=== PATIENT | male | born 1975 | race Caucasian/White ===

== ENCOUNTER 2024-06-06 10:08 | Inpatient (IN) | payer BC, SELFPAY ==
--- NOTE | ~2024-06-06 | MR_ITS ---
EXAMINATION: MR hand LT wo/w con DATE: 06/07/2024 16:23 INDICATION: Cellulitis at the left hand. Assess for osteomyelitis. TECHNIQUE: Magnetic resonance imaging (MRI) of the left hand was performed without and with 15 mL Mul tihance intravenous contrast. Sequences included axial T1-weighted FSE, axial T2-weighted FS FSE, cor onal T1-weighted FSE, coronal T2-weighted FS FSE, sagittal T1-weighted FSE and sagittal T2-weighted F S FSE. Precontrast axial T1-weighted FS FSE and post contrast axial, sagittal and coronal T1-weighted FS FSE were also obtained. COMPARISON: Left hand radiographs and CT dated 06/06/2024 FINDINGS: Bone alignment is normal. There is a T2 hyperintense intraosseous ganglion cyst with thin sclerotic m argins evident on the prior CT located at the radial side of the head of the third metacarpal. Marrow signal is otherwise normal throughout. No reactive edema, fracture, osteomyelitis or other pathologi c marrow replacing process. No joint effusions. There is soft tissue edema throughout the fourth digi t most prominent dorsal to the head of the fourth proximal phalanx where there is a 12 x 10 x 3 mm pe ripherally enhancing subcutaneous abscess located superficial to the extensor tendons. The flexor and extensor tendons appear normal with no tenosynovitis. The collateral ligament complex at the metacar pophalangeal and interphalangeal joints are normal. IMPRESSION: 1. Cellulitis surrounding a 12 x 10 x 3 mm subcutaneous abscess dorsal to the head of the fourth prox imal phalanx. No osteomyelitis. Reviewed, dictated and finalized at location A. VERY RN IMPRESSION: 1. Cellulitis surrounding a 12 x 10 x 3 mm subcutaneous abscess dorsal to the h ead of the fourth proximal phalanx. No osteomyelitis.
--- NOTE | ~2024-06-06 | CT_ITS ---
Procedure: CT hand LT w con Ordering provider: Peter Hampton MD History: . cellulitis , osteo . Comparison: None. Technique: Thin slice axial CT of the left hand with IV contrast.. Sagittal and coronal reformatted i mages were also obtained and reviewed. Radiation reduction technique utilized.The dose-length product was 481.75 mGy-cm. 100 mL Omnipaque 350 was given IV. Findings: BONES: No evidence of osteomyelitis seen. No fractures. JOINT SPACES: Normal. SOFT TISSUES: Possible fat stranding seen in the dorsal aspect of the fourth finger which may indicat e cellulitis. Clinical correlation advised. IMPRESSION: No evidence of osteomyelitis or fracture. Possible cellulitis in the dorsal aspect of the fourth finger. Clinical correlation advised. Reviewed, dictated and finalized at location A. [employer]
--- NOTE | ~2024-06-06 | XR_ITS ---
EXAMINATION: XR hand LT min 3V DATE: 06/06/2024 12:19 INDICATION: Left hand infection with pain at the second and fourth digits TECHNIQUE: Posteroanterior, oblique and lateral views of the left hand were obtained. COMPARISON: None. FINDINGS: Alignment is normal. No fracture. Minimal to mild polyarticular osteoarthritis at the distal radiouln ar joint the radial aspect of the carpus and a few predominant distal interphalangeal joints. No faraz ical erosions or periosteal reaction. Soft tissue swelling about the second and fourth digits. IMPRESSION: 1. 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 No acute osseous abnormal ity. Reviewed, dictated and finalized at location B. NS SERVICE CONDUCTOR IMPRESSION: 1. 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 No acute osseous abnormality.
[2024-06-06 10:38] VITALS: BP 170/99; PULSE 101; RESP 20; TEMP 37.2; O2SAT 100
--- NOTE | 2024-06-06 12:07 | ED_ITS ---
HPI - General Adult General Chief complaint: Extremity Injury, Upper <Kaushal Phillips PA-C - Last Filed: 06/06/24 12:12> Stated complaint: Poss Staph infection left hand <Kaushal Phillips PA-C - Last Filed: 06/06/24 12:12> Time Seen by Provider: 06/06/24 15:19 <Kaushal Phillips PA-C - Last Filed: 06/06/24 12:12> Focused HPI: this is a 49-year-old male who presents to the ED for chief complaint of left hand redness and swelling ongoing for the last week and half. Reports that he is a type 2 diabetic and has not taken his medications in years. Patient works as a materials scientist in the local area and wants to make sure that he does not get septic. Reports 2 areas to the left hand that he connect with his car door that have subsequently developed to probable infections. They do drain pus. Reports subjective fevers and chills. Denies nausea, vomiting, syncope. GENERAL: Well-appearing, well-nourished, and in no acute distress. HEAD: Normocephalic, atraumatic. CHEST: Clear to auscultation. No respiratory distress. HEART: Regular rate and rhythm. NEURO: Alert and oriented x3. Patient screened in triage and initial orders placed. Additional care and disposition to be based upon diagnostic testing and treatment. <Kaushal Phillips PA-C - Last Filed: 06/06/24 12:12> Source: patient <Kaushal Phillips PA-C - Last Filed: 06/06/24 12:12> Mode of arrival: ambulatory <Kaushal Phillips PA-C - Last Filed: 06/06/24 12:12> Limitations: no limitations <Kaushal Phillips PA-C - Last Filed: 06/06/24 12:12> History of Present Illness HPI narrative: 49-year-old with a history of diabetes here with a complaint of pain, swelling and redness to his left hand. Patient states that he accidentally hit his hand against a car door 2 weeks ago had of open wound. The for the past few days and now the hand is getting red and occasionally draining pus. He is not on any antibiotics. Patient states that he has not been taking any of his diabetic medication for last several years. He also states that he has had fever and chills over the last few days, he works as a materials scientist. reports that he has few similar lesions on his back,pt states he was scratching his back might got infected. has sore throat since last night. <Peter Hampton MD - Last Filed: 06/06/24 19:00> Onset (ago): day(s) (4) <Peter Hampton MD - Last Filed: 06/06/24 19:00> Location: upper extremity (left) <Peter Hampton MD - Last Filed: 06/06/24 19:00> Related Data Allergies/adverse reactions: Allergies Allergy/AdvReac Type Severity Reaction Status Date / Time codeine AdvReac Unknown Verified 06/06/24 10:43 <Kaushal Phillips PA-C - Last Filed: 06/06/24 12:12> Review of Systems 2 Review of Systems: All systems reviewed & are unremarkable except as noted in HPI and below <Peter Hampton MD - Last Filed: 06/06/24 19:00> Constitutional: Constitutional: Reports no additional constitutional complaints <Peter Hampton MD - Last Filed: 06/06/24 19:00> Eyes: Eyes: Reports no additional eye complaints <Peter Hampton MD - Last Filed: 06/06/24 19:00> ENT: Reports as per HPI <Peter Hampton MD - Last Filed: 06/06/24 19:00> Cardiovascular: Cardiovascular: Reports no additional cardiovascular complaints <Peter Hampton MD - Last Filed: 06/06/24 19:00> Respiratory: Respiratory: Reports no additional respiratory complaints < Peter Hampton MD - Last Filed: 06/06/24 19:00> Gastrointestinal: Gastrointestinal: Reports no additional gastrointestinal complaints <Peter Hampton MD - Last Filed: 06/06/24 19:00> Musculoskeletal: Musculoskeletal: Reports as per HPI <Peter Hampton MD - Last Filed: 06/06/24 19:00> Integumentary/Breasts: Skin/Breast: Reports as per HPI <Peter Hampton MD - Last Filed: 06/06/24 19:00> Neurologic: Reports system reviewed and no additional complaints, except as documented <Peter Hampton MD - Last Filed: 06/06/24 19:00> Exam 2 Narrative: GENERAL: Well-appearing, well-nourished, and in no acute distress. HEAD: Normocephalic, atraumatic. EYES: PERRLA and EOMI. ENT: Nares clear, no rhinorrhea or epistaxis. Mucous membranes moist mildly erythematous oropharynx, no exudate NECK: Supple. CHEST: Clear to auscultation. No respiratory distress. HEART: Regular rate and rhythm. No murmur heard. Normal peripheral pulses. ABDOMEN: Soft, nontender, nondistended, normal active bowel sounds. EXTREMITIES: Normal range of motion. No edema. left hand i open wound on the 3 rd and 5 th finger with thick eschar with no obvious drainage. SKIN: Warm, dry, no rash. NEURO: No focal deficits. Alert and oriented x3. PSYCH: Normal mood and affect. <Peter Hampton MD - Last Filed: 06/06/24 19:00> Course Course Emergency Course: patient remained afebrile here in the ER his hand is not as and has open ulcers. I did obtain blood cultures was started on IV antibiotics vancomycin and cefazolin. he agreed with admission. Discussed with hospitalist <Peter Hampton MD - Last Filed: 06/06/24 19:00> Vital Signs Vital signs: Vital Signs Temperature 37.2 C 06/06/24 10:38 Pulse Rate 101 H 06/06/24 10:38 Respiratory Rate 20 06/06/24 10:38 Blood Pressure 170/99 H 06/06/24 10:38 Pulse Oximetry 100 06/06/24 10:38 Oxygen Delivery Room Air 06/06/24 10:38 Temperature 37.2 C 06/06/24 10:38 Pulse Rate 101 H 06/06/24 10:38 Respiratory Rate 20 06/06/24 10:38 Blood Pressure 170/99 H 06/06/24 10:38 Pulse Oximetry 100 06/06/24 10:38 Oxygen Delivery Room Air 06/06/24 10:38 <Kaushal Phillips PA-C - Last Filed: 06/06/24 12:12> Vital Signs Temperature 37.2 C 06/06/24 10:38 Pulse Rate 101 H 06/06/24 10:38 Respiratory Rate 20 06/06/24 10:38 Blood Pressure 170/99 H 06/06/24 10:38 Pulse Oximetry 100 06/06/24 10:38 Oxygen Delivery Room Air 06/06/24 10:38 Temperature 37.2 C 06/06/24 10:38 Pulse Rate 101 H 06/06/24 10:38 Respiratory Rate 20 06/06/24 10:38 Blood Pressure 170/99 H 06/06/24 10:38 Pulse Oximetry 100 06/06/24 10:38 Oxygen Delivery Room Air 06/06/24 10:38 <Peter Hampton MD - Last Filed: 06/06/24 19:00> Medical Decision Making Differential Diagnosis Differential Diagnosis: cellulitis, osteomyelitis <Peter Hampton MD - Last Filed: 06/06/24 19:00> Medical Records Medical records reviewed: Yes I reviewed the external patient's medical records. <Peter Hampton MD - Last Filed: 06/06/24 19:00> Vital Signs Vital Signs: Vital Signs Temperature 37.2 C 06/06/24 10:38 Pulse Rate 101 H 06/06/24 10:38 Respiratory Rate 20 06/06/24 10:38 Blood Pressure 170/99 H 06/06/24 10:38 Pulse Oximetry 100 06/06/24 10:38 Oxygen Delivery Room Air 06/06/24 10:38 Temperature 37.2 C 06/06/24 10:38 Pulse Rate 101 H 06/06/24 10:38 Respiratory Rate 20 06/06/24 10:38 Blood Pressure 170/99 H 06/06/24 10:38 Pulse Oximetry 100 06/06/24 10:38 Oxygen Delivery Room Air 06/06/24 10:38 <Kaushal Phillips PA-C - Last Filed: 06/06/24 12:12> Vital Signs Temperature 37.2 C 06/06/24 10:38 Pulse Rate 101 H 06/06/24 10:38 Respiratory Rate 20 06/06/24 10:38 Blood Pressure 170/99 H 06/06/24 10:38 Pulse Oximetry 100 06/06/24 10:38 Oxygen Delivery Room Air 06/06/24 10:38 Temperature 37.2 C 06/06/24 10:38 Pulse Rate 101 H 06/06/24 10:38 Respiratory Rate 20 06/06/24 10:38 Blood Pressure 170/99 H 06/06/24 10:38 Pulse Oximetry 100 06/06/24 10:38 Oxygen Delivery Room Air 06/06/24 10:38 <Peter Hampton MD - Last Filed: 06/06/24 19:00> Lab Data Lab results reviewed: Yes I reviewed the patient's lab results. <Peter Hampton MD - Last Filed: 06/06/24 19:00> Result diagrams: 06/06/24 15:21 06/06/24 15:21 <Kaushal Phillips PA-C - Last Filed: 06/06/24 12:12> Labs: Lab Results 06/06/24 06/06/24 Range/Units 15:21 16:23 WBC 11.2 H (4.5-10.0) K/mm3 RBC 5.39 (4.6-6.20) M/mm3 Hgb 15.8 (14.0-18.0) g/dL Hct 44.4 (42.0-52.0) % MCV 82.4 (80-100) fl MCH 29.3 (26-34) pg MCHC 35.6 (32-36) g/dl RDW 12.4 (11.5-14.5) % Plt Count 173 (150-375) k/mm3 MPV 10.8 H (7.4-10.4) fl Immature Gran % (Auto) 0.5 (0-0.5) % Neut % (Auto) 82.3 H (45.5-73.1) % Lymph % (Auto) 8.1 L (18.3-44.2) % Leake % (Auto) 8.1 (2.6-8.5) % Eos % (Auto) 0.6 (0-4.4) % Baso % (Auto) 0.4 (0.2-1.2) % Lymph # (Auto) 0.91 (0.9-3.2) K/mm3 Leake # (Auto) 0.9 H (0.1-0.6) K/mm3 Eos # (Auto) 0.1 (0-0.3) K/mm3 Baso # (Auto) 0.1 (0.0-0.1) K/mm3 Abs Immat Gran (auto) 0.06 H (0.00-0.031) K/mm3 Absolute Neuts (auto) 9.2 H (1.3-6.7) K/mm3 Absolute Nucleated RBC 0.000 (0.0-0.012) K/mm3 Nucleated RBC % 0.0 (0.0-0.2) % Sodium 128 L (137-145) mmol/L Potassium 4.4 (3.4-5.0) mmol/L Chloride 98 (98-107) mmol/L Carbon Dioxide 23 (22-30) mmol/L Anion Gap 7 (4-12) mmol/L BUN 12 (9-20) mg/dL Creatinine 0.80 (0.7-1.3) mg/dL Estim Creat Clear Calc 105 ml/min Estimated GFR > 60 (59 - ) Glucose 275 H (65-110) mg/dL Lactic Acid 1.1 (0.7-2.0) mmol/L Calcium 8.7 (8.4-10.2) mg/dL Total Bilirubin 1.0 (0.2-1.3) mg/dL AST 24 (17-59) U/L ALT 30 (6-50) U/L Alkaline Phosphatase 145 H (38-126) U/L C-Reactive Protein 8.1 H (<1.0) mg/dL Total Protein 8.0 (6.3-8.2) g/dL Albumin 4.0 (3.5-5.1) g/dL Urine Color Yellow (Yellow) Urine Appearance Clear (Clear) Urine pH 5.5 (5.0-9.0) Ur Specific [place] 1.039 H (1.001-1.035) Urine Protein 1+ H (Negative) mg/dL Urine Glucose (UA) 3+ H (Negative) mg/dL Urine Ketones 3+ H (Negative) mg/dL Ur Blood (Man) Trace (Negative) Urine Nitrate Negative (Negative) Urine Bilirubin Negative (Negative) Urine Urobilinogen 1.0 (<2.0) mg/dL Leukocyte Esterase Rfl Negative (Negative) LUIS ENRIQUE/UL Urine RBC 0-2 (0-2) /hpf Urine WBC 0-5 (0-3) /hpf Ur Squamous Epith Cells None seen (Few) /hpf Urine Bacteria None seen /hpf Urine Casts 0-2 Influenza A (RT-PCR) Pending Influenza B (RT-PCR) Pending RSV (RT-PCR) Pending SARS-CoV-2 RNA (RT-PCR) Pending Group A Strep (PCR) Pending <Kaushal Phillips PA-C - Last Filed: 06/06/24 12:12> Lab Results 06/06/24 06/06/24 Range/Units 15:21 16:23 WBC 11.2 H (4.5-10.0) K/mm3 RBC 5.39 (4.6-6.20) M/mm3 Hgb 15.8 (14.0-18.0) g/dL Hct 44.4 (42.0-52.0) % MCV 82.4 (80-100) fl MCH 29.3 (26-34) pg MCHC 35.6 (32-36) g/dl RDW 12.4 (11.5-14.5) % Plt Count 173 (150-375) k/mm3 MPV 10.8 H (7.4-10.4) fl Immature Gran % (Auto) 0.5 (0-0.5) % Neut % (Auto) 82.3 H (45.5-73.1) % Lymph % (Auto) 8.1 L (18.3-44.2) % Leake % (Auto) 8.1 (2.6-8.5) % Eos % (Auto) 0.6 (0-4.4) % Baso % (Auto) 0.4 (0.2-1.2) % Lymph # (Auto) 0.91 (0.9-3.2) K/mm3 Leake # (Auto) 0.9 H (0.1-0.6) K/mm3 Eos # (Auto) 0.1 (0-0.3) K/mm3 Baso # (Auto) 0.1 (0.0-0.1) K/mm3 Abs Immat Gran (auto) 0.06 H (0.00-0.031) K/mm3 Absolute Neuts (auto) 9.2 H (1.3-6.7) K/mm3 Absolute Nucleated RBC 0.000 (0.0-0.012) K/mm3 Nucleated RBC % 0.0 (0.0-0.2) % Sodium 128 L (137-145) mmol/L Potassium 4.4 (3.4-5.0) mmol/L Chloride 98 (98-107) mmol/L Carbon Dioxide 23 (22-30) mmol/L Anion Gap 7 (4-12) mmol/L BUN 12 (9-20) mg/dL Creatinine 0.80 (0.7-1.3) mg/dL Estim Creat Clear Calc 105 ml/min Estimated GFR > 60 (59 - ) Glucose 275 H (65-110) mg/dL Lactic Acid 1.1 (0.7-2.0) mmol/L Calcium 8.7 (8.4-10.2) mg/dL Total Bilirubin 1.0 (0.2-1.3) mg/dL AST 24 (17-59) U/L ALT 30 (6-50) U/L Alkaline Phosphatase 145 H (38-126) U/L C-Reactive Protein 8.1 H (<1.0) mg/dL Total Protein 8.0 (6.3-8.2) g/dL Albumin 4.0 (3.5-5.1) g/dL Urine Color Yellow (Yellow) Urine Appearance Clear (Clear) Urine pH 5.5 (5.0-9.0) Ur Specific [place] 1.039 H (1.001-1.035) Urine Protein 1+ H (Negative) mg/dL Urine Glucose (UA) 3+ H (Negative) mg/dL Urine Ketones 3+ H (Negative) mg/dL Ur Blood (Man) Trace (Negative) Urine Nitrate Negative (Negative) Urine Bilirubin Negative (Negative) Urine Urobilinogen 1.0 (<2.0) mg/dL Leukocyte Esterase Rfl Negative (Negative) LUIS ENRIQUE/UL Urine RBC 0-2 (0-2) /hpf Urine WBC 0-5 (0-3) /hpf Ur Squamous Epith Cells None seen (Few) /hpf Urine Bacteria None seen /hpf Urine Casts 0-2 Influenza A (RT-PCR) Pending Influenza B (RT-PCR) Pending RSV (RT-PCR) Pending SARS-CoV-2 RNA (RT-PCR) Pending Group A Strep (PCR) Pending <Peter Hampton MD - Last Filed: 06/06/24 19:00> Imaging Data Radiologist's impression: ITS Impressions Hand X-Ray 06/06/24 12:31 IMPRESSION: 1. 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 No acute osseous abnormality. <Peter Hampton MD - Last Filed: 06/06/24 19:00> Discharge Plan Discharge Clinical Impression: Cellulitis of hand, Non compliance w medication regimen, Strep throat <Kaushal Phillips PA-C - Last Filed: 06/06/24 12:12> Patient Disposition: Still a Patient <Kaushal Phillips PA-C - Last Filed: 06/06/24 12:12> Condition: Stable <Kaushal Phillips PA-C - Last Filed: 06/06/24 12:12> Patient Language: Italian <Kaushal Phillips PA-C - Last Filed: 06/06/24 12:12> Follow-up/Referrals: Ana M Cavazos MD [Primary Care Provider] - <Kaushal Phillips PA-C - Last Filed: 06/06/24 12:12> Time of Disposition: 19:00 <Kaushal Phillips PA-C - Last Filed: 06/06/24 12:12> 19:00 <Peter Hampton MD - Last Filed: 06/06/24 19:00>
[2024-06-06 15:27] LABS: Basophils Absolute Auto 0.1 K/mm3 (0.0-0.1); Basophils Percent Auto 0.4 % (0.2-1.2); Eosinophils Absolute Auto 0.1 K/mm3 (0-0.3); Eosinophils Percent Auto 0.6 % (0-4.4); Hematocrit 44.4 % (42.0-52.0); Hemoglobin 15.8 g/dL (14.0-18.0); Immature Granulocyte Absolute 0.06 K/mm3 (0.00-0.031); Immature Granulocyte Percent A 0.5 % (0-0.5); Lymphocytes Absolute Auto 0.91 K/mm3 (0.9-3.2); Lymphocytes Percent Auto 8.1 % (18.3-44.2); Mean Corpuscular HGB Conc 35.6 g/dl (32-36); Mean Corpuscular Hemoglobin 29.3 pg (26-34); Mean Corpuscular Volume 82.4 fl (80-100); Mean Platelet Volume 10.8 fl (7.4-10.4); Monocytes Absolute Auto 0.9 K/mm3 (0.1-0.6); Monocytes Percent Auto 8.1 % (2.6-8.5); Neutrophils Absolute Auto 9.2 K/mm3 (1.3-6.7); Neutrophils Percent Auto 82.3 % (45.5-73.1); Platelet Count Result 173 k/mm3 (150-375); Red Blood Count 5.39 M/mm3 (4.6-6.20); Red Cell Distribution Width 12.4 % (11.5-14.5); White Blood Count 11.2 K/mm3 (4.5-10.0)
[2024-06-06 15:30] VITALS: BP 166/91; PULSE 98; RESP 19; O2SAT 99
[2024-06-06 15:34] LABS: Add Urine Microscopic? YES; Appearance Urine Clear (Clear); Bacteria Urine None Seen /hpf; Bilirubin Urine Negative (Negative); Blood Urine Trace (Negative); Color Urine Yellow (Yellow); Glucose Urine UA 3+ mg/dL (Negative); Ketones Urine 3+ mg/dL (Negative); Leukocyte Esterase Ur Negative LEU/UL (Negative); Nitrate Urine Negative (Negative); Non Pathogenic Casts 0-2; Protein Urine 1+ mg/dL (Negative); RBC Urine 0-2 /hpf (0-2); Specific Grav Ur 1.039 (1.001-1.035); Squamous Epithelial Cell Urine None Seen /hpf (Few); WBC Urine 0-5 /hpf (0-3); pH Urine 5.5 (5.0-9.0)
[2024-06-06 15:37] LABS: Lactic Acid Reflex 1.1 mmol/L (0.7-2.0)
[2024-06-06 15:39] LABS: Alanine Aminotransferase 30 U/L (6-50); Alkaline Phosphatase 145 U/L (38-126); Anion Gap 7 mmol/L (4-12); Aspartate Amino Transferase 24 U/L (17-59); Blood Urea Nitrogen 12 mg/dL (9-20); CRP 8.1 mg/dL (<1.0); Calcium 8.7 mg/dL (8.4-10.2); Carbon Dioxide 23 mmol/L (22-30); Chloride 98 mmol/L (98-107); Estimated CRCL calculation 105 ml/min; Estimated Glomerular Filt Rate > 60; Glucose 275 mg/dL (65-110); Potassium 4.4 mmol/L (3.4-5.0); Sodium 128 mmol/L (137-145)
[2024-06-06 16:59] LABS: Strep Group A RT-PCR DETECTED (Negative)
[2024-06-06 17:14] LABS: Influenza A QL RT-PCR Negative (Negative); Influenza B QL RT-PCR Negative (Negative); RSV RNA, RT-PCR Negative (Negative); SARS-CoV-2 RNA PCR Negative (Negative)
[2024-06-06 17:25] VITALS: BP 176/90; PULSE 89; RESP 16; O2SAT 100
[2024-06-06] MEDS: VANCOMYCIN 1,500 MG/NS 500 ML 1,500 MG/500 ML BAG 250 MG IVPB (17:32)
[2024-06-06] MEDS: SODIUM CHLORIDE 0.9% IV 1,000 ML 999 ML IV CONT (18:33)
[2024-06-06] MEDS: INSULIN ASPART (*BKC) 100 UNITS/ML 8 UNITS SUB-Q (18:33)
[2024-06-06 19:10] VITALS: BP 153/91; PULSE 97; RESP 22; O2SAT 100
[2024-06-06 21:00] VITALS: BP 159/84; PULSE 89; RESP 20; O2SAT 99
--- NOTE | 2024-06-06 21:10 | PM.IMHP ---
H&P: HPI History of Present Illness Date/Time: 06/06/24 21:10 Chief Complaint: hand cellulitis left hand redness and swelling Narrative: 49-year-old male with past medical history of diabetes mellitus, not on any medications at home presented with left hand swelling and redness. He was closing the door of his jeep 1/2 weeks ago when he thinks he caught his hand. It started with a small pimple like swelling along with redness which has increased including the knuckle area. Does have chills at home. He does have similar looking lesions on the back which she has been scratching. Does not take any medications at home. Does not take any diabetic medications at home. Does smoke and vape. Denies taking any antibiotics recently for those redness and swelling. Complains of constipation, last bowel movement 3 days ago, usually he goes without having a bowel movement for 1-2 weeks. Also complains of sore throat Review of Systems Review of Systems: All systems reviewed & are unremarkable except as noted in HPI and below Meds Home Medications and Allergies Allergies Allergy/AdvReac Type Severity Reaction Status Date / Time codeine AdvReac Unknown Verified 06/06/24 10:43 Vital Signs Vital Signs - 24 hr 06/06/24 10:38 Temperature 99.0 F Pulse Rate 101 H Respiratory Rate 20 Blood Pressure 170/99 H Pulse Oximetry 100 Oxygen Delivery Room Air Exam Const: General: comfortable HENMT: Face/Nose/Sinus: Normal nares present Mouth: Yes moist mucous membranes Eyes: Sclera: sclerae normal Neck: Neck: supple Resp: Effort & Inspection: normal respiratory effort Auscultation: clear to auscultation bilaterally Cardio: Rate: regular rate Rhythm: regular rhythm GI: GI Palp: Yes Soft to palpation Auscultation: normal bowel sounds Skin: Wounds: wounds noted Other: Noted skin break with surrounding mild erythema on upper back, noted redness and swelling of of middle finger along the interphalangeal joint and knuckle area Neuro: Speech: normal speech Motor exam (neuro): 5/5 motor strength present throughout Extrem: General: normal to inspection Psych: Mental Status: mental status grossly normal H&P: Results Labs Labs: Short CBC 06/06/24 Range/Units 15:21 WBC 11.2 H (4.5-10.0) K/mm3 Hgb 15.8 (14.0-18.0) g/dL Hct 44.4 (42.0-52.0) % Plt Count 173 (150-375) k/mm3 BMP 06/06/24 15:21 Sodium 128 L Potassium 4.4 Chloride 98 Carbon Dioxide 23 BUN 12 Creatinine 0.80 Glucose 275 H Calcium 8.7 Liver Function 06/06/24 Range/Units 15:21 Total Bilirubin 1.0 (0.2-1.3) mg/dL AST 24 (17-59) U/L ALT 30 (6-50) U/L Alkaline Phosphatase 145 H (38-126) U/L Albumin 4.0 (3.5-5.1) g/dL Urine 06/06/24 Range/Units 15:21 Urine Color Yellow (Yellow) Urine Appearance Clear (Clear) Urine pH 5.5 (5.0-9.0) Ur Specific [place] 1.039 H (1.001-1.035) Urine Protein 1+ H (Negative) mg/dL Urine Glucose (UA) 3+ H (Negative) mg/dL Assessment and Plan Assessment and plan (1) Strep throat: Code(s): J02.0 - Streptococcal pharyngitis Status: Acute (2) Non compliance w medication regimen: Code(s): Z91.148 - Patient's other noncompliance with medication regimen for other reason Status: Acute (3) Cellulitis of hand: Code(s): L03.119 - Cellulitis of unspecified part of limb Status: Acute (4) Diabetes mellitus: Code(s): E11.9 - Type 2 diabetes mellitus without complications Status: Acute (5) Hyponatremia: Code(s): E87.1 - Hypo-osmolality and hyponatremia Status: Acute (6) Hypertension: Code(s): I10 - Essential (primary) hypertension Status: Acute Plan 49-year-old male with no known past medical history of diabetes mellitus, not on any medications who presented with left hand cellulitis after having a traumatic injury from a car door. 1. Left hand cellulitis: Admit to General Medicine CT had been negative for any abscess/fracture/osteomyelitis Obtain blood culture Has been started on vancomycin and cefepime will continue for now Pain control Wound care consult Monitor leukocytosis 2. Diabetes mellitus: Obtain hemoglobin A1c with next set of labs Blood glucose checked t.i.d. a.c. HS Will start on basal bolus regimen Adjust insulin dose as needed Nutrition consult in the morning 3. Undiagnosed hypertension: Will start on low-dose lisinopril Add p.r.n. IV hydralazine 4. Hyponatremia: Likely secondary to osmotic diuresis Continue with IV fluids Recheck BMP in a.m. 5. Group a strep pharyngitis: Already on antibiotics as mentioned above Supportive care with lozenges, phenol spray p.r.n. 6. DVT prophylaxis: Heparin subQ 7. Code status: Full 8. Disposition: Admit to General [facility] Quality VTE Prophylaxis VTE prophylaxis: pharmacologic ordered Hospitalist [facility] Advance Care Plan I have confirmed that the patient's Advanced Care Plan is present, code status is documented, or surrogate decision maker is listed in patient medical record.: Yes Medication Reconciliation I have utilized all available resources to obtain, update and review the patients current medications (includes all prescriptions, OTC, herbals, cannabis, and nutritional supplements).: Yes
[2024-06-06] MEDS: ceFAZolin 1 GM/NS 50 ML 1 GM/50 ML BAG IVPB (21:17)
[2024-06-06 21:23] LABS: Glucose Point of Care 266 mg/dl (65-105)
[2024-06-06] MEDS: oxyCODONE/ACETAMINOPHEN (*CRX) 5-325 MG TABLET 1 TABLET PO (21:36)
--- NOTE | 2024-06-06 22:06 | ADMGEN ---
This patient, Panchito Jones, was admitted to 2 Medical Room 248-01. Patient/family oriented to hospital policies and general routines including ID bracelet, bed and alarms, visiting hours, pain management, procedures, bathroom and other care routines, personal items, smoking policy, room service/diet, and visiting hours. Information on how to activate the Rapid Response Team has been discussed. Patient/Family are encouraged to report perceived risks to care and to ask questions if they do not understand what they are told or what they should do. Report received from JAYDE Jauregui in ED.
[2024-06-06 22:12] VITALS: BMI 30.7
[2024-06-06] MEDS: INSULIN GLARGINE (*BKC) 100 UNITS/ML 14 UNITS SUB-Q (22:21)
[2024-06-06 22:22] LABS: Glucose Point of Care 251 mg/dl (65-105)
[2024-06-06] MEDS: SODIUM CHLORIDE 0.9% IV 1,000 ML 125 ML IV CONT (22:22)
[2024-06-06] MEDS: HEPARIN SODIUM 5,000 UNITS/ML VIAL 5000 UNITS SUB-Q (22:22)
[2024-06-06 22:27] VITALS: BP 134/78; PULSE 98; RESP 16; TEMP 36.5; O2SAT 96
[2024-06-06] MEDS: NICOTINE (*PBKC) 21 MG PATCH 1 PATCH TRANSDERM (23:26)
[2024-06-07] MEDS: ceFAZolin 1 GM/NS 50 ML 1 GM/50 ML BAG IVPB ×3 (04:48→21:53)
[2024-06-07] MEDS: BENZOCAINE/MENTHOL (*BKC) 18 EA LOZENGE 1 LOZENGE PO (04:52)
[2024-06-07 05:02] LABS: Hemoglobin A1C 12.3 % (<5.7)
[2024-06-07 05:17] LABS: Basophils Absolute Auto 0.1 K/mm3 (0.0-0.1); Basophils Percent Auto 0.6 % (0.2-1.2); Eosinophils Absolute Auto 0.1 K/mm3 (0-0.3); Eosinophils Percent Auto 1.7 % (0-4.4); Hematocrit 41.8 % (42.0-52.0); Hemoglobin 14.5 g/dL (14.0-18.0); Immature Granulocyte Absolute 0.06 K/mm3 (0.00-0.031); Immature Granulocyte Percent A 0.7 % (0-0.5); Lymphocytes Absolute Auto 1.21 K/mm3 (0.9-3.2); Lymphocytes Percent Auto 14.4 % (18.3-44.2); Mean Corpuscular HGB Conc 34.7 g/dl (32-36); Mean Corpuscular Hemoglobin 29.1 pg (26-34); Mean Corpuscular Volume 83.8 fl (80-100); Mean Platelet Volume 11.2 fl (7.4-10.4); Monocytes Absolute Auto 0.9 K/mm3 (0.1-0.6); Monocytes Percent Auto 10.3 % (2.6-8.5); Neutrophils Absolute Auto 6.1 K/mm3 (1.3-6.7); Neutrophils Percent Auto 72.3 % (45.5-73.1); Platelet Count Result 159 k/mm3 (150-375); Red Blood Count 4.99 M/mm3 (4.6-6.20); Red Cell Distribution Width 12.4 % (11.5-14.5); White Blood Count 8.4 K/mm3 (4.5-10.0)
[2024-06-07] MEDS: SODIUM CHLORIDE 0.9% IV 1,000 ML 125 ML IV CONT (05:18)
[2024-06-07] MEDS: VANCOMYCIN 1,500 MG/NS 500 ML 1,500 MG/500 ML BAG 250 MG IVPB ×2 (05:18→17:02)
[2024-06-07] MEDS: HEPARIN SODIUM 5,000 UNITS/ML VIAL 5000 UNITS SUB-Q ×3 (05:19→20:55)
[2024-06-07 05:29] LABS: Potassium 4.3 mmol/L (3.4-5.0)
[2024-06-07 05:30] LABS: Anion Gap 3 mmol/L (4-12); Blood Urea Nitrogen 12 mg/dL (9-20); Calcium 8.2 mg/dL (8.4-10.2); Carbon Dioxide 27 mmol/L (22-30); Chloride 103 mmol/L (98-107); Estimated CRCL calculation 104 ml/min; Estimated Glomerular Filt Rate > 60; Glucose 252 mg/dL (65-110); Sodium 133 mmol/L (137-145)
[2024-06-07 06:09] VITALS: BP 162/78; PULSE 88; RESP 16; TEMP 36.3; O2SAT 98
[2024-06-07 07:27] VITALS: O2SAT 94
[2024-06-07 08:14] LABS: Glucose Point of Care 240 mg/dl (65-105)
[2024-06-07] MEDS: INSULIN ASPART (*BKC) 100 UNITS/ML SUB-Q ×2 (08:35→17:04)
[2024-06-07] MEDS: INSULIN ASPART (*BKC) 100 UNITS/ML 6 UNITS SUB-Q ×3 (08:36→17:04)
[2024-06-07] MEDS: lisinopriL 5 MG TABLET PO (08:40)
[2024-06-07] MEDS: polyethylene glycoL 3350 17 GM POWD.PACK PO (08:40)
[2024-06-07] MEDS: NICOTINE (*PBKC) 21 MG PATCH 1 PATCH TRANSDERM (08:40)
[2024-06-07 12:00] LABS: Glucose Point of Care 181 mg/dl (65-105)
[2024-06-07] MEDS: ACETAMINOPHEN 325 MG TABLET 650 MG PO (12:31)
--- NOTE | 2024-06-07 14:04 | PM.IMPN ---
Progress Note: A&P Assessment and Plan (1) Strep throat: Code(s): J02.0 - Streptococcal pharyngitis Status: Acute (2) Non compliance w medication regimen: Code(s): Z91.148 - Patient's other noncompliance with medication regimen for other reason Status: Acute (3) Cellulitis of hand: Code(s): L03.119 - Cellulitis of unspecified part of limb Status: Acute (4) Diabetes mellitus: Code(s): E11.9 - Type 2 diabetes mellitus without complications Status: Acute (5) Hyponatremia: Code(s): E87.1 - Hypo-osmolality and hyponatremia Status: Acute (6) Hypertension: Code(s): I10 - Essential (primary) hypertension Status: Acute Plan 49-year-old male with no known past medical history of diabetes mellitus, not on any medications who presented with left hand cellulitis after having a traumatic injury from a car door. 1. Left hand cellulitis: CT had been negative for any abscess/fracture/osteomyelitis MRI hand ordered Obtain blood culture Continue vancomycin and Levofloxacin Pain control Wound care consult Monitor leukocytosis Gen surgery consulted for possible debridement 2. Diabetes mellitus: A1c pending SSI with accucheks 3. Undiagnosed hypertension: Started on Lisinopril and Add p.r.n. IV hydralazine 4. Hyponatremia, resolved s/pIVF Na 133 from 128 5. Group a strep pharyngitis: Already on antibiotics as mentioned above Supportive care with lozenges, phenol spray p.r.n. 6. DVT prophylaxis: Heparin subQ Subjective Date/time seen: 06/07/24 14:04 Interval history: Patient comfortable at bedside Noted lesion has been going on for about 10 days Review of Systems Review of Systems: All systems reviewed & are unremarkable except as noted in HPI and below Exam Const: General: comfortable HENMT: Face/Nose/Sinus: Normal nares present Mouth: Yes moist mucous membranes Eyes: Sclera: sclerae normal Neck: Neck: supple Resp: Effort & Inspection: normal respiratory effort Auscultation: clear to auscultation bilaterally Cardio: Rate: regular rate Rhythm: regular rhythm GI: Auscultation: normal bowel sounds Skin: General skin exam: wounds noted Wounds: wounds noted Other: Noted skin break with surrounding mild erythema on upper back, noted redness and swelling of of middle finger along the interphalangeal joint and knuckle area Neuro: Speech: normal speech Motor exam (neuro): 5/5 motor strength present throughout Extrem: General: normal to inspection Psych: Mental Status: mental status grossly normal Objective Data Vital Signs Vital Signs: Vital Signs - 24 hr 06/06/24 15:30 06/06/24 17:25 06/06/24 19:10 Temperature Pulse Rate 98 89 97 Respiratory Rate 19 16 22 H Blood Pressure 166/91 H 176/90 H 153/91 H Pulse Oximetry 99 100 100 Oxygen Delivery 06/06/24 21:00 06/06/24 22:22 06/06/24 22:27 Temperature 97.7 F Pulse Rate 89 98 Respiratory Rate 20 16 Blood Pressure 159/84 H 134/78 Pulse Oximetry 99 96 Oxygen Delivery Room Air 06/07/24 06:09 06/07/24 07:27 06/07/24 08:30 Temperature 97.3 F L Pulse Rate 88 Respiratory Rate 16 Blood Pressure 162/78 H Pulse Oximetry 98 94 Oxygen Delivery Room Air Room Air Intake/Output Intake/Output: Intake & Output 06/04/24 06/05/24 06/06/24 06/07/24 23:59 23:59 23:59 23:59 Intake Total 1550 2086.7 Balance 1550 2086.7 Meds/Results Medications: Active Medications Generic Name Dose Route Start Last Admin Trade Name Freq PRN Reason Stop Dose Admin Acetaminophen 650 mg 06/06/24 19:01 06/07/24 12:31 Acetaminophen 325 Mg Tablet PO 650 mg Q4H PRN Administration Mild Pain (1-3) or Fever Benzocaine 1 lozenge 06/06/24 21:16 06/07/24 04:52 Benzocaine/Menthol (*Bkc) 18 Ea Lozenge PO 1 lozenge PRN PRN Administration Sore Throat Dextrose 12.5 gm 06/06/24 20:38 Dextrose 50% 25 Gm/50 Ml Syringe IV PUSH PRN PRN Hypoglycemia Protocol Glucagon 1 mg 06/06/24 20:38 Glucagon For Inj 1 Mg Vial IM PRN PRN Hypoglycemia Protocol Glucose 15 gm 06/06/24 20:38 Glucose Oral Gel 15 Gm Of Glucse In 37.5 Gm Tube PO PRN PRN Hypoglycemia Protocol Heparin Sodium (Porcine) 5,000 units 06/06/24 22:00 06/07/24 05:19 Heparin Sodium 5,000 Units/Ml Vial SUB-Q 5,000 units Q8HR INESSA Administration Hydralazine HCl 10 mg 06/06/24 20:43 Hydralazine Hcl 20 Mg/Ml Vial IV PUSH Q6HR PRN Blood Pressure - High Vancomycin HCl 1,500 mg in 500 mls @ 250 mls/hr 06/06/24 17:00 06/07/24 07:18 Vancomycin 1,500 Mg/Ns 500 Ml IVPB Infused Q12H INESSA Infusion Sodium Chloride 1,000 mls @ 125 mls/hr 06/06/24 19:05 06/07/24 05:18 Normal Saline Iv IV CONT 06/07/24 19:04 125 mls/hr .Q8H INESSA Administration Cefazolin Sodium 1 gm in 50 mls @ 100 mls/hr 06/06/24 20:00 06/07/24 12:49 Ancef 1 Gm/Ns 50 Ml IVPB Infused Q8H INESSA Infusion Dextrose 1,000 mls @ 100 mls/hr 06/06/24 20:38 Dextrose 5% 1,000 Ml IVPB PRN PRN Hypoglycemia Protocol Insulin Aspart 2 - 5 units 06/07/24 08:00 06/07/24 12:23 Insulin Aspart (*Bkc) 100 Units/Ml SUB-Q Not Given TIDWM [facility] Protocol Insulin Aspart 6 units 06/07/24 08:00 06/07/24 12:20 Insulin Aspart (*Bkc) 100 Units/Ml 0.067 units/kg (6 units) 6 units SUB-Q Administration TIDWM [facility] Insulin Glargine 14 units 06/06/24 21:00 06/06/24 22:21 Insulin Glargine (*Bkc) 100 Units/Ml 0.15 units/kg (14 units) 14 units SUB-Q Administration HS INESSA Lisinopril 5 mg 06/07/24 09:00 06/07/24 08:40 Lisinopril 5 Mg Tablet PO 5 mg QAM INESSA Administration Morphine Sulfate 2 mg 06/06/24 20:42 Morphine Sulfate (*Crx) 2 Mg/Ml Inj IV PUSH Q4H PRN Pain Rated 7-10 Nicotine 1 patch 06/06/24 23:20 06/07/24 08:40 Nicotine (*Pbkc) 21 Mg Patch TRANSDERM 1 patch DAILY INESSA Administration Ondansetron HCl 4 mg 06/06/24 19:01 Ondansetron Inj 4 Mg/2 Ml Vial IV PUSH Q4H PRN Nausea Oxycodone/Acetaminophen 1 tablet 06/06/24 20:41 06/06/24 21:36 Oxycodone/Acetaminophen (*Crx) 5-325 Mg Tablet PO 1 tablet Q4H PRN Administration Pain Rated 7-10 Phenol 1 spray 06/06/24 21:21 Phenol/Sod Pheno [place] (*Bkc) MUCOUS MEM PRN PRN Sore Throat Polyethylene Glycol 17 gm 06/07/24 09:00 06/07/24 08:40 Polyethylene Glycol 3350 17 Gm Powd.Pack PO 17 gm QAM INESSA Administration Radiology Results: ITS Impressions Hand X-Ray 06/06/24 12:31 IMPRESSION: 1. 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 No acute osseous abnormality. Hand CT 06/06/24 18:11 IMPRESSION: No evidence of osteomyelitis or fracture. Possible cellulitis in the dorsal aspect of the fourth finger. Clinical correlation advised. Labs Labs: Laboratory Results - last 24 hr 06/06/24 06/06/24 06/06/24 15:20 15:21 16:23 WBC 11.2 H RBC 5.39 Hgb 15.8 Hct 44.4 MCV 82.4 MCH 29.3 MCHC 35.6 RDW 12.4 Plt Count 173 MPV 10.8 H Immature Gran % (Auto) 0.5 Neut % (Auto) 82.3 H Lymph % (Auto) 8.1 L [place] % (Auto) 8.1 Eos % (Auto) 0.6 Baso % (Auto) 0.4 Lymph # (Auto) 0.91 [place] # (Auto) 0.9 H Eos # (Auto) 0.1 Baso # (Auto) 0.1 Abs Immat Gran (auto) 0.06 H Absolute Neuts (auto) 9.2 H Absolute Nucleated RBC 0.000 Nucleated RBC % 0.0 Sodium 128 L Potassium 4.4 Chloride 98 Carbon Dioxide 23 Anion Gap 7 BUN 12 Creatinine 0.80 Estim Creat Clear Calc 105 Estimated GFR > 60 Glucose 275 H POC Capillary Glucose Hemoglobin A1c 12.3 H Lactic Acid 1.1 Calcium 8.7 Total Bilirubin 1.0 AST 24 ALT 30 Alkaline Phosphatase 145 H C-Reactive Protein 8.1 H Total Protein 8.0 Albumin 4.0 Urine Color Yellow Urine Appearance Clear Urine pH 5.5 Ur Specific [place] 1.039 H Urine Protein 1+ H Urine Glucose (UA) 3+ H Urine Ketones 3+ H Ur Blood (Man) Trace Urine Nitrate Negative Urine Bilirubin Negative Urine Urobilinogen 1.0 Leukocyte Esterase Rfl Negative Urine RBC 0-2 Urine WBC 0-5 Ur Squamous Epith Cells None seen Urine Bacteria None seen Urine Casts 0-2 Influenza A (RT-PCR) Negative Influenza B (RT-PCR) Negative RSV (RT-PCR) Negative SARS-CoV-2 RNA (RT-PCR) Negative Group A Strep (PCR) Detected A 06/06/24 06/06/24 06/07/24 21:21 22:15 04:41 WBC 8.4 RBC 4.99 Hgb 14.5 Hct 41.8 L MCV 83.8 MCH 29.1 MCHC 34.7 RDW 12.4 Plt Count 159 MPV 11.2 H Immature Gran % (Auto) 0.7 H Neut % (Auto) 72.3 Lymph % (Auto) 14.4 L [place] % (Auto) 10.3 H Eos % (Auto) 1.7 Baso % (Auto) 0.6 Lymph # (Auto) 1.21 [place] # (Auto) 0.9 H Eos # (Auto) 0.1 Baso # (Auto) 0.1 Abs Immat Gran (auto) 0.06 H Absolute Neuts (auto) 6.1 Absolute Nucleated RBC 0.000 Nucleated RBC % 0.0 Sodium 133 L Potassium 4.3 Chloride 103 Carbon Dioxide 27 Anion Gap 3 L BUN 12 Creatinine 0.80 Estim Creat Clear Calc 104 Estimated GFR > 60 Glucose 252 H POC Capillary Glucose 266 H 251 H Hemoglobin A1c Lactic Acid Calcium 8.2 L Total Bilirubin AST ALT Alkaline Phosphatase C-Reactive Protein Total Protein Albumin Urine Color Urine Appearance Urine pH Ur Specific [place] Urine Protein Urine Glucose (UA) Urine Ketones Ur Blood (Man) Urine Nitrate Urine Bilirubin Urine Urobilinogen Leukocyte Esterase Rfl Urine RBC Urine WBC Ur Squamous Epith Cells Urine Bacteria Urine Casts Influenza A (RT-PCR) Influenza B (RT-PCR) RSV (RT-PCR) SARS-CoV-2 RNA (RT-PCR) Group A Strep (PCR) 06/07/24 06/07/24 08:05 11:58 WBC RBC Hgb Hct MCV MCH MCHC RDW Plt Count MPV Immature Gran % (Auto) Neut % (Auto) Lymph % (Auto) [place] % (Auto) Eos % (Auto) Baso % (Auto) Lymph # (Auto) [place] # (Auto) Eos # (Auto) Baso # (Auto) Abs Immat Gran (auto) Absolute Neuts (auto) Absolute Nucleated RBC Nucleated RBC % Sodium Potassium Chloride Carbon Dioxide Anion Gap BUN Creatinine Estim Creat Clear Calc Estimated GFR Glucose POC Capillary Glucose 240 H 181 H Hemoglobin A1c Lactic Acid Calcium Total Bilirubin AST ALT Alkaline Phosphatase C-Reactive Protein Total Protein Albumin Urine Color Urine Appearance Urine pH Ur Specific [place] Urine Protein Urine Glucose (UA) Urine Ketones Ur Blood (Man) Urine Nitrate Urine Bilirubin Urine Urobilinogen Leukocyte Esterase Rfl Urine RBC Urine WBC Ur Squamous Epith Cells Urine Bacteria Urine Casts Influenza A (RT-PCR) Influenza B (RT-PCR) RSV (RT-PCR) SARS-CoV-2 RNA (RT-PCR) Group A Strep (PCR) Quality VTE Prophylaxis VTE prophylaxis: pharmacologic ordered
[2024-06-07] MEDS: oxyCODONE/ACETAMINOPHEN (*CRX) 5-325 MG TABLET 1 TABLET PO ×2 (14:52→20:54)
[2024-06-07] MEDS: levoFLOXacin 750 MG/D5W 150 ML 750 MG/150 ML BAG 100 MG IVPB (14:53)
[2024-06-07 15:00] VITALS: BP 150/89; PULSE 85; RESP 16; TEMP 36.2; O2SAT 96
[2024-06-07 16:53] LABS: Glucose Point of Care 238 mg/dl (65-105)
[2024-06-07] MEDS: SACCHAROMYCES BOULARDII 250 MG CAPSULE PO (17:03)
[2024-06-07] MEDS: INSULIN GLARGINE (*BKC) 100 UNITS/ML 14 UNITS SUB-Q (20:55)
[2024-06-07 21:59] VITALS: BP 152/78; PULSE 82; RESP 18; TEMP 36.9; O2SAT 94
[2024-06-08] VITALS (10 sets, daily range): BP systolic 121–184; BP diastolic 58–100; PULSE 82–96; RESP 12–24; TEMP 36.2–37.1; O2SAT 90–100
[2024-06-08 02:57] LABS: Glucose Point of Care 224 mg/dl (65-105)
[2024-06-08] MEDS: ceFAZolin 1 GM/NS 50 ML 1 GM/50 ML BAG IVPB ×2 (04:55→12:28)
[2024-06-08 05:00] LABS: Basophils Percent Auto 0.5 % (0.2-1.2); Eosinophils Absolute Auto 0.2 K/mm3 (0-0.3); Eosinophils Percent Auto 3.1 % (0-4.4); Hematocrit 37.2 % (42.0-52.0); Immature Granulocyte Absolute 0.05 K/mm3 (0.00-0.031); Immature Granulocyte Percent A 0.8 % (0-0.5); Lymphocytes Absolute Auto 1.21 K/mm3 (0.9-3.2); Mean Corpuscular HGB Conc 34.9 g/dl (32-36); Mean Corpuscular Hemoglobin 28.9 pg (26-34); Mean Corpuscular Volume 82.7 fl (80-100); Mean Platelet Volume 10.5 fl (7.4-10.4); Monocytes Absolute Auto 0.5 K/mm3 (0.1-0.6); Monocytes Percent Auto 8.8 % (2.6-8.5); Neutrophils Percent Auto 66.8 % (45.5-73.1); Platelet Count Result 160 k/mm3 (150-375); Red Cell Distribution Width 12.4 % (11.5-14.5)
[2024-06-08] MEDS: HEPARIN SODIUM 5,000 UNITS/ML VIAL 5000 UNITS SUB-Q (05:00)
[2024-06-08 05:09] LABS: Lactic Acid Reflex 0.7 mmol/L (0.7-2.0)
[2024-06-08] MEDS: oxyCODONE/ACETAMINOPHEN (*CRX) 5-325 MG TABLET 1 TABLET PO ×2 (05:09→20:23)
[2024-06-08 05:11] LABS: Alanine Aminotransferase 70 U/L (6-50); Albumin Level 3.1 g/dL (3.5-5.1); Alkaline Phosphatase 145 U/L (38-126); Anion Gap 1 mmol/L (4-12); Aspartate Amino Transferase 69 U/L (17-59); Bilirubin,Total 0.6 mg/dL (0.2-1.3); Blood Urea Nitrogen 9 mg/dL (9-20); Calcium 8.1 mg/dL (8.4-10.2); Carbon Dioxide 26 mmol/L (22-30); Chloride 106 mmol/L (98-107); Estimated CRCL calculation 117 ml/min; Estimated Glomerular Filt Rate > 60; Glucose 176 mg/dL (65-110); Magnesium 1.8 mg/dL (1.6-2.3); Sodium 133 mmol/L (137-145)
[2024-06-08 05:34] LABS: Vancomycin Trough 8.9 ug/mL (10.0-20.0)
[2024-06-08] MEDS: VANCOMYCIN 1,750 MG/NS 500 ML 1,750 MG/500 ML BAG 250 MG IVPB ×2 (06:03→17:33)
[2024-06-08 07:43] LABS: Glucose Point of Care 169 mg/dl (65-105)
[2024-06-08] MEDS: INSULIN ASPART (*BKC) 100 UNITS/ML 6 UNITS SUB-Q ×3 (08:51→17:43)
[2024-06-08] MEDS: SACCHAROMYCES BOULARDII 250 MG CAPSULE PO ×2 (08:52→17:33)
[2024-06-08] MEDS: amLODIPine BESYLATE 2.5 MG TABLET PO (08:52)
[2024-06-08] MEDS: polyethylene glycoL 3350 17 GM POWD.PACK PO (08:52)
[2024-06-08] MEDS: lisinopriL 5 MG TABLET PO (08:52)
[2024-06-08] MEDS: NICOTINE (*PBKC) 21 MG PATCH 1 PATCH TRANSDERM (08:52)
--- NOTE | 2024-06-08 10:08 | PM.IMPN ---
Progress Note: A&P Assessment and Plan (1) Strep throat: Code(s): J02.0 - Streptococcal pharyngitis Status: Acute (2) Non compliance w medication regimen: Code(s): Z91.148 - Patient's other noncompliance with medication regimen for other reason Status: Acute (3) Cellulitis of hand: Code(s): L03.119 - Cellulitis of unspecified part of limb Status: Acute (4) Diabetes mellitus: Code(s): E11.9 - Type 2 diabetes mellitus without complications Status: Acute (5) Hyponatremia: Code(s): E87.1 - Hypo-osmolality and hyponatremia Status: Acute (6) Hypertension: Code(s): I10 - Essential (primary) hypertension Status: Acute Plan 49-year-old male with no known past medical history of diabetes mellitus, not on any medications who presented with left hand cellulitis after having a traumatic injury from a car door. 1. Left hand cellulitis with abscess CT had been negative for any abscess/fracture/osteomyelitis MRI hand showed Cellulitis with abscess, no osteomyelititis Continue vancomycin and Levofloxacin Pain control Plastic surgery consulted for debridement 2. Diabetes mellitus: A1c pending SSI with accucheks 3. Hypertension Continue Lisinopril and Amlodipine Add p.r.n. IV hydralazine 4. Hyponatremia, resolved s/pIVF Na 133 from 128 5. Group a strep pharyngitis: Already on antibiotics as mentioned above Supportive care with lozenges, phenol spray p.r.n. 6. DVT prophylaxis: Heparin subQ Subjective Date/time seen: 06/08/24 10:08 Interval history: Patient comfortable at bedside Awaiting surgery eval. Review of Systems Review of Systems: All systems reviewed & are unremarkable except as noted in HPI and below Exam Const: General: comfortable HENMT: Face/Nose/Sinus: Normal nares present Mouth: Yes moist mucous membranes Eyes: Sclera: sclerae normal Neck: Neck: supple Resp: Effort & Inspection: normal respiratory effort Auscultation: clear to auscultation bilaterally Cardio: Rate: regular rate Rhythm: regular rhythm GI: Auscultation: normal bowel sounds Skin: General skin exam: wounds noted Wounds: wounds noted Other: Noted skin break with surrounding mild erythema on upper back, noted redness and swelling of of middle finger along the interphalangeal joint and knuckle area Neuro: Speech: normal speech Motor exam (neuro): 5/5 motor strength present throughout Extrem: General: normal to inspection Psych: Mental Status: mental status grossly normal Objective Data Vital Signs Vital Signs: Vital Signs - 24 hr 06/07/24 15:00 06/07/24 20:40 06/07/24 21:59 Temperature 97.2 F L 98.5 F Pulse Rate 85 82 Respiratory Rate 16 18 Blood Pressure 150/89 H 152/78 H Pulse Oximetry 96 94 Oxygen Delivery Room Air 06/08/24 06:00 Temperature 97.4 F L Pulse Rate 87 Respiratory Rate 18 Blood Pressure 171/90 H Pulse Oximetry 97 Oxygen Delivery Intake/Output Intake/Output: Intake & Output 06/05/24 06/06/24 06/07/24 06/08/24 23:59 23:59 23:59 23:59 Intake Total 1550 3266.7 1090 Balance 1550 3266.7 1090 Meds/Results Medications: Active Medications Generic Name Dose Route Start Last Admin Trade Name Freq PRN Reason Stop Dose Admin Acetaminophen 650 mg 06/06/24 19:01 06/07/24 12:31 Acetaminophen 325 Mg Tablet PO 650 mg Q4H PRN Administration Mild Pain (1-3) or Fever Amlodipine Besylate 2.5 mg 06/08/24 09:00 06/08/24 08:52 Amlodipine Besylate 2.5 Mg Tablet PO 2.5 mg QAM INESSA Administration Benzocaine 1 lozenge 06/06/24 21:16 06/07/24 04:52 Benzocaine/Menthol (*Bkc) 18 Ea Lozenge PO 1 lozenge PRN PRN Administration Sore Throat Dextrose 12.5 gm 06/06/24 20:38 Dextrose 50% 25 Gm/50 Ml Syringe IV PUSH PRN PRN Hypoglycemia Protocol Glucagon 1 mg 06/06/24 20:38 Glucagon For Inj 1 Mg Vial IM PRN PRN Hypoglycemia Protocol Glucose 15 gm 06/06/24 20:38 Glucose Oral Gel 15 Gm Of Glucse In 37.5 Gm Tube PO PRN PRN Hypoglycemia Protocol Heparin Sodium (Porcine) 5,000 units 06/06/24 22:00 06/08/24 05:00 Heparin Sodium 5,000 Units/Ml Vial SUB-Q 5,000 units Q8HR INESSA Administration Hydralazine HCl 10 mg 06/06/24 20:43 Hydralazine Hcl 20 Mg/Ml Vial IV PUSH Q6HR PRN Blood Pressure - High Cefazolin Sodium 1 gm in 50 mls @ 100 mls/hr 06/06/24 20:00 06/08/24 05:25 Ancef 1 Gm/Ns 50 Ml IVPB Infused Q8H INESSA Infusion Dextrose 1,000 mls @ 100 mls/hr 06/06/24 20:38 Dextrose 5% 1,000 Ml IVPB PRN PRN Hypoglycemia Protocol Levofloxacin/Dextrose 750 mg in 150 mls @ 100 mls/hr 06/07/24 15:00 06/07/24 16:24 Levaquin 750 Mg/D5w 150 Ml IVPB Infused Q24H INESSA Infusion Vancomycin HCl 1,750 mg in 500 mls @ 250 mls/hr 06/08/24 06:00 06/08/24 06:03 Vancomycin 1,750 Mg/Ns 500 Ml IVPB 250 mls/hr Q12H INESSA Administration Insulin Aspart 2 - 5 units 06/07/24 08:00 06/08/24 08:48 Insulin Aspart (*Bkc) 100 Units/Ml SUB-Q Not Given TIDWM [facility] Protocol Insulin Aspart 6 units 06/07/24 08:00 06/08/24 08:51 Insulin Aspart (*Bkc) 100 Units/Ml 0.067 units/kg (6 units) 6 units SUB-Q Administration TIDWM [facility] Insulin Glargine 14 units 06/06/24 21:00 06/07/24 20:55 Insulin Glargine (*Bkc) 100 Units/Ml 0.15 units/kg (14 units) 14 units SUB-Q Administration [facility] Lisinopril 5 mg 06/07/24 09:00 06/08/24 08:52 Lisinopril 5 Mg Tablet PO 5 mg QAM [facility] Administration Morphine Sulfate 2 mg 06/06/24 20:42 Morphine Sulfate (*Crx) 2 Mg/Ml Inj IV PUSH Q4H PRN Pain Rated 7-10 Nicotine 1 patch 06/06/24 23:20 06/08/24 08:52 Nicotine (*Pbkc) 21 Mg Patch TRANSDERM 1 patch DAILY INESSA Administration Ondansetron HCl 4 mg 06/06/24 19:01 Ondansetron Inj 4 Mg/2 Ml Vial IV PUSH Q4H PRN Nausea Oxycodone/Acetaminophen 1 tablet 06/06/24 20:41 06/08/24 05:09 Oxycodone/Acetaminophen (*Crx) 5-325 Mg Tablet PO 1 tablet Q4H PRN Administration Pain Rated 7-10 Phenol 1 spray 06/06/24 21:21 Phenol/Sod Pheno [place] (*Bkc) MUCOUS MEM PRN PRN Sore Throat Polyethylene Glycol 17 gm 06/07/24 09:00 06/08/24 08:52 Polyethylene Glycol 3350 17 Gm Powd.Pack PO 17 gm QAM INESSA Administration Saccharomyces Boulardii 250 mg 06/07/24 17:00 06/08/24 08:52 Saccharomyces Boulardii 250 Mg Capsule PO 250 mg BID INESSA Administration Radiology Results: ITS Impressions Hand X-Ray 06/06/24 12:31 IMPRESSION: 1. 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 No acute osseous abnormality. Hand CT 06/06/24 18:11 IMPRESSION: No evidence of osteomyelitis or fracture. Possible cellulitis in the dorsal aspect of the fourth finger. Clinical correlation advised. Hand MRI 06/07/24 16:26 IMPRESSION: 1. Cellulitis surrounding a 12 x 10 x 3 mm subcutaneous abscess dorsal to the head of the fourth proximal phalanx. No osteomyelitis. Labs Labs: Laboratory Results - last 24 hr 06/07/24 06/07/24 06/07/24 11:58 16:50 20:08 WBC RBC Hgb Hct MCV MCH MCHC RDW Plt Count MPV Immature Gran % (Auto) Neut % (Auto) Lymph % (Auto) [place] % (Auto) Eos % (Auto) Baso % (Auto) Lymph # (Auto) [place] # (Auto) Eos # (Auto) Baso # (Auto) Abs Immat Gran (auto) Absolute Neuts (auto) Absolute Nucleated RBC Nucleated RBC % Sodium Potassium Chloride Carbon Dioxide Anion Gap BUN Creatinine Estim Creat Clear Calc Estimated GFR Glucose POC Capillary Glucose 181 H 238 H 224 H Lactic Acid Calcium Magnesium Total Bilirubin AST ALT Alkaline Phosphatase Total Protein Albumin Vancomycin Trough 06/08/24 06/08/24 04:52 07:41 WBC 6.0 RBC 4.50 L Hgb 13.0 L Hct 37.2 L MCV 82.7 MCH 28.9 MCHC 34.9 RDW 12.4 Plt Count 160 MPV 10.5 H Immature Gran % (Auto) 0.8 H Neut % (Auto) 66.8 Lymph % (Auto) 20.0 [place] % (Auto) 8.8 H Eos % (Auto) 3.1 Baso % (Auto) 0.5 Lymph # (Auto) 1.21 [place] # (Auto) 0.5 Eos # (Auto) 0.2 Baso # (Auto) 0.0 Abs Immat Gran (auto) 0.05 H Absolute Neuts (auto) 4.0 Absolute Nucleated RBC 0.000 Nucleated RBC % 0.0 Sodium 133 L Potassium 4.0 Chloride 106 Carbon Dioxide 26 Anion Gap 1 L BUN 9 Creatinine 0.70 Estim Creat Clear Calc 117 Estimated GFR > 60 Glucose 176 H POC Capillary Glucose 169 H Lactic Acid 0.7 Calcium 8.1 L Magnesium 1.8 Total Bilirubin 0.6 AST 69 H ALT 70 H Alkaline Phosphatase 145 H Total Protein 6.0 L Albumin 3.1 L Vancomycin Trough 8.9 L Quality VTE Prophylaxis VTE prophylaxis: pharmacologic ordered
[2024-06-08 11:56] LABS: Glucose Point of Care 163 mg/dl (65-105)
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
--- NOTE | 2024-06-08 15:15 | WPDANESEPPF ---
Anes - Initial Pre Proc Eval Procedure: Operation Date: 06/08/24 15:00 Proposed Procedures p I&D Debride Upper Extremity Hand(Left) - Franki Sanches MD Date/Time: 06/08/24 15:15 Surgeon: Marjorie Ponce DO Pre Op Diagnosis: cellulitis left hand, strep throat Patient Data Age: 49 Gender: M Height: 1.7 m Weight: 89.1 kg Last Vital Signs Temp 98.1 F 06/08/24 14:00 Pulse 88 06/08/24 14:00 Resp 24 H 06/08/24 14:00 BP 184/91 H 06/08/24 14:00 Pulse Ox 97 06/08/24 14:00 O2 Del Method Room Air 06/07/24 20:40 Allergies Allergy/AdvReac Type Severity Reaction Status Date / Time codeine AdvReac Unknown Verified 06/06/24 10:43 Home Medications ?Medication ?Instructions ?Recorded ?Confirmed ?Type No Home Medications 06/06/24 06/06/24 History Laboratory Tests 06/07/24 06/07/24 06/08/24 16:50 20:08 04:52 WBC 6.0 K/mm3 (4.5-10.0) RBC 4.50 L M/mm3 (4.6-6.20) Hgb 13.0 L g/dL (14.0-18.0) Hct 37.2 L % (42.0-52.0) MCV 82.7 fl (80-100) MCH 28.9 pg (26-34) MCHC 34.9 g/dl (32-36) RDW 12.4 % (11.5-14.5) Plt Count 160 k/mm3 (150-375) MPV 10.5 H fl (7.4-10.4) Immature Gran % (Auto) 0.8 H % (0-0.5) Neut % (Auto) 66.8 % (45.5-73.1) Lymph % (Auto) 20.0 % (18.3-44.2) [place] % (Auto) 8.8 H % (2.6-8.5) Eos % (Auto) 3.1 % (0-4.4) Baso % (Auto) 0.5 % (0.2-1.2) Lymph # (Auto) 1.21 K/mm3 (0.9-3.2) [place] # (Auto) 0.5 K/mm3 (0.1-0.6) Eos # (Auto) 0.2 K/mm3 (0-0.3) Baso # (Auto) 0.0 K/mm3 (0.0-0.1) Abs Immat Gran (auto) 0.05 H K/mm3 (0.00-0.031) Absolute Neuts (auto) 4.0 K/mm3 (1.3-6.7) Absolute Nucleated RBC 0.000 K/mm3 (0.0-0.012) Nucleated RBC % 0.0 % (0.0-0.2) Sodium 133 L mmol/L (137-145) Potassium 4.0 mmol/L (3.4-5.0) Chloride 106 mmol/L (98-107) Carbon Dioxide 26 mmol/L (22-30) Anion Gap 1 L mmol/L (4-12) BUN 9 mg/dL (9-20) Creatinine 0.70 mg/dL (0.7-1.3) Estim Creat Clear Calc 117 ml/min Estimated GFR > 60 (59 - ) Glucose 176 H mg/dL (65-110) POC Capillary Glucose 238 H mg/dl 224 H mg/dl (65-105) (65-105) Lactic Acid 0.7 mmol/L (0.7-2.0) Calcium 8.1 L mg/dL (8.4-10.2) Magnesium 1.8 mg/dL (1.6-2.3) Total Bilirubin 0.6 mg/dL (0.2-1.3) AST 69 H U/L (17-59) ALT 70 H U/L (6-50) Alkaline Phosphatase 145 H U/L (38-126) Total Protein 6.0 L g/dL (6.3-8.2) Albumin 3.1 L g/dL (3.5-5.1) Vancomycin Trough 8.9 L ug/mL (10.0-20.0) 06/08/24 06/08/24 07:41 11:54 WBC RBC Hgb Hct MCV MCH MCHC RDW Plt Count MPV Immature Gran % (Auto) Neut % (Auto) Lymph % (Auto) [place] % (Auto) Eos % (Auto) Baso % (Auto) Lymph # (Auto) [place] # (Auto) Eos # (Auto) Baso # (Auto) Abs Immat Gran (auto) Absolute Neuts (auto) Absolute Nucleated RBC Nucleated RBC % Sodium Potassium Chloride Carbon Dioxide Anion Gap BUN Creatinine Estim Creat Clear Calc Estimated GFR Glucose POC Capillary Glucose 169 H mg/dl 163 H mg/dl (65-105) (65-105) Lactic Acid Calcium Magnesium Total Bilirubin AST ALT Alkaline Phosphatase Total Protein Albumin Vancomycin Trough Patient hx anesthesia problems: none Family hx anesthesia problems: none Results Review: All pre-operative results and documents have been reviewed as part of the pre-operative evaluation. [facility] Family History Family History Other No significant family history Social History Social History Smoking status: Current every day smoker Tobacco type: e-cigarettes/vaping Additional smoking assessment comments: former cigarrete user Alcohol intake: current Drinks per week: 5 Substance use: never Do You Feel Safe in your Home?: Yes Lack of Transportation: No Lack of Food: Never True Current Housing: I Have Housing Concerned About Future Housing: No Difficulty Paying Gas/Electric Bills: No Difficulty Paying for Meds: No Currently Unemployed: No Education: Trade/Vocational Certificate Difficulty w/ Childcare or Family Care: No Spiritual care concerns: No Anes - Eval Final PreProcedure Day of Procedure 06/08/24 15:15 Patient weight: obese Heart: regular rate and rhythm Lungs: clear to auscultation Airway: Mallampati scale class II and special considerations (Missing lower teeth on R and upper R aspect. ) Neurological: alert and oriented Last oral intake: >/= 8 hours ASA classification: III Emergent: yes Anesthetic plan: proceed Anesthesia type and monitoring: general ETT and standard monitoring Results Review: All pre-operative results and documents have been reviewed as part of the pre-operative evaluation. Uncontrolled DM, fsbs 163 now, ex smoker, now vapes daily. No known HTN but elevated BPs since here. Full discussion w pt, Dr Miller and RISK CONTROL CONSULTANT and pt who is a cotton stomper. Limb threatening injury w abscess requiring emergent I and D that supports breaking NPO guidelines and proceeding at this time. Pt had cheeseburger/tater tots at [phone] today. Informed Consent: The patient's anesthetic plan and its attendant risks and benefits were discussed with the patient/family/POA. Questions were solicited and answers provided to the satisfaction of the patient/family/POA.
--- NOTE | 2024-06-08 15:18 | WPDHPUPDATE1 ---
History and Physical Update Update Date/Time: 06/08/24 15:18 History and Physical has been reviewed, including an updated exam of the patient. There are NO changes in the patient's condition. Risks, benefits, and alternatives have been discussed and questions answered. Patient agrees to proceed with procedure.
--- NOTE | 2024-06-08 15:19 | WPDHPUPDATE1 ---
History and Physical Update Update Date/Time: 06/08/24 15:19 History and Physical has been reviewed, including an updated exam of the patient. There are NO changes in the patient's condition. Risks, benefits, and alternatives have been discussed and questions answered. Patient agrees to proceed with procedure.
--- NOTE | 2024-06-08 15:50 | SUR.OPER ---
Left 4th finger culture and left 4th finger gram stain sent to Zachery Farias RN. Initially gram stain was ordered for stat, but surgeon changed to routine. Will notify lab that both are routine.
--- NOTE | 2024-06-08 16:00 | SUR.OPER ---
Culture and gram stain received in lab.
[2024-06-08] MEDS: LACTATED RINGERS 1,000 ML 30 ML IV CONT (16:07)
--- NOTE | 2024-06-08 16:11 | P.OP_ITS ---
Procedure Note - Detailed Date of Procedure 06/08/24 Pre-op Diagnosis Abscess left 4th finger Post-op Diagnosis Same Procedure Performed Debridement abscess dorsum left 4th finger Surgeon Franki Sanches MD Elevator [employer]airer Apprentice nancy Anesthesia General Description of Procedure Patient was brought to the operating room and general anesthesia was administered. I took 2 photos with the for camera before we started and unfortunately by the time we had finished the procedure room her looking at the postop total we had taken the pictures we had taken before we started advantage. I did take a photograph of my cell phone after obtaining permission from the patient while he was in the patient's room to make sure we had initial photo that I could use to share with Dr. Ferguson for comparison. The left arm was prepped with Betadine scrub and Betadine paint. I weight off the Betadine paint from the area of necrosis and with a hemostat lifted the loose necrotic dermis from the surrounding tissue which left a hole about 7 mm in diameter with pink dermis surrounding it. This released purulent fluid that we saved on a swab that was sent for culture. We then used a 2nd swab and went through the defect into the abscess which was more proximal where there was additional purulent fluid and sent this for culture as well. The skin edges were carefully debrided. The limb was exsanguinated tourniquet elevated to 250 mmHg. With the 7 mm hole I had easy access to the abscess which was little bit proximal. We used a small curved hemostat with the corner of a 4 x 4 was able to insert the 4 x 4 into the abscess cavity which extended approximately 11 mm proximal to the defect and we did this repeatedly and found the abscess cavity extended dorsal medial and dorsal lateral to the extensor mechanism over the head of the proximal phalanx and also lateral and medial to the defect itself and of about 3 or 4 mm distal the defect. With loupe magnification we carefully debrided any necrotic tissue in the subcu area with the 4x4s did a nice job of removing loose debris. The 7 mm full-thickness defect was directly over the periosteum of the proximal shaft of the middle phalanx and was distal to the central slip insertion. The radial and ulnar lateral bands were inspected and within the tendon sheath and surface of the central slip was her white and looked healthy as did the lateral bands. the periosteum was intact over the shaft of the middle phalanx as well. I considered incising the very swollen but otherwise intact skin over the dorsum of the head of the proximal phalanx for more extensive debridement but I felt I had very satisfactory access through the defect and I did not feel that make incision would add to the ability to debride the subcu layer and the surface of the extensor mechanism with gentle spongy. The wound was irrigated with normal saline using a bulb syringe copiously. The tourniquet was released. All the remaining tissue became hyperemic and bled normally. We carefully inserted quarter-inch Nu Gauze into the ulnar radial gutters and over the dorsum of the extensor mechanism over the head of the proximal phalanx being careful not to pack it in tightly. This was soaked in normal saline before insertion. A soft bulky dressing of 4x4s was applied the patient transferred postop recovery room stable condition. No known complications. [facility] - Charge Forward: Surgery Billing (Debridement abscess left 4th finger)
[2024-06-08 16:32] LABS: Glucose Point of Care 206 mg/dl (65-105)
[2024-06-08] MEDS: fentaNYL CITRATE INJ (*CRX) 100 MCG/2 ML VIAL 25 MCG IV PUSH ×2 (16:40→16:50)
[2024-06-08] MEDS: levoFLOXacin 750 MG/D5W 150 ML 750 MG/150 ML BAG 100 MG IVPB (17:27)
[2024-06-08] MEDS: MORPHINE SULFATE (*CRX) 2 MG/ML INJ IV PUSH (17:31)
[2024-06-08] MEDS: SENNA/DOCUSATE SODIUM TABLET 2 TAB PO (17:33)
[2024-06-08] MEDS: INSULIN ASPART (*BKC) 100 UNITS/ML SUB-Q (17:43)
[2024-06-08] MEDS: ceFAZolin 2 GM/D5W 50 ML 2 GM/50 ML BAG IVPB (18:52)
[2024-06-08 20:11] LABS: Glucose Point of Care 167 mg/dl (65-105)
[2024-06-08] MEDS: INSULIN GLARGINE (*BKC) 100 UNITS/ML 14 UNITS SUB-Q (20:22)
[2024-06-09] VITALS (8 sets, daily range): BP systolic 144–175; BP diastolic 64–91; PULSE 74–84; RESP 16–19; TEMP 36.4–37; O2SAT 93–96
[2024-06-09] MEDS: ceFAZolin 2 GM/D5W 50 ML 2 GM/50 ML BAG IVPB ×3 (01:24→20:26)
[2024-06-09] MEDS: VANCOMYCIN 1,750 MG/NS 500 ML 1,750 MG/500 ML BAG 250 MG IVPB ×2 (05:35→18:26)
[2024-06-09 05:58] LABS: Basophils Absolute Auto 0.1 K/mm3 (0.0-0.1); Basophils Percent Auto 0.7 % (0.2-1.2); Eosinophils Absolute Auto 0.2 K/mm3 (0-0.3); Eosinophils Percent Auto 2.5 % (0-4.4); Hemoglobin 12.9 g/dL (14.0-18.0); Immature Granulocyte Absolute 0.05 K/mm3 (0.00-0.031); Immature Granulocyte Percent A 0.7 % (0-0.5); Lymphocytes Absolute Auto 1.27 K/mm3 (0.9-3.2); Lymphocytes Percent Auto 18.9 % (18.3-44.2); Mean Corpuscular HGB Conc 33.9 g/dl (32-36); Mean Corpuscular Volume 85.4 fl (80-100); Mean Platelet Volume 10.7 fl (7.4-10.4); Monocytes Absolute Auto 0.6 K/mm3 (0.1-0.6); Monocytes Percent Auto 8.6 % (2.6-8.5); Neutrophils Absolute Auto 4.6 K/mm3 (1.3-6.7); Neutrophils Percent Auto 68.6 % (45.5-73.1); Platelet Count Result 182 k/mm3 (150-375); Red Blood Count 4.45 M/mm3 (4.6-6.20); Red Cell Distribution Width 12.5 % (11.5-14.5); White Blood Count 6.7 K/mm3 (4.5-10.0)
[2024-06-09 06:04] LABS: Alanine Aminotransferase 77 U/L (6-50); Alkaline Phosphatase 155 U/L (38-126); Anion Gap 1 mmol/L (4-12); Aspartate Amino Transferase 50 U/L (17-59); Bilirubin,Total 0.6 mg/dL (0.2-1.3); Blood Urea Nitrogen 8 mg/dL (9-20); Calcium 8.3 mg/dL (8.4-10.2); Carbon Dioxide 29 mmol/L (22-30); Chloride 104 mmol/L (98-107); Estimated CRCL calculation 117 ml/min; Estimated Glomerular Filt Rate > 60; Glucose 157 mg/dL (65-110); Magnesium 1.7 mg/dL (1.6-2.3); Potassium 4.2 mmol/L (3.4-5.0); Sodium 134 mmol/L (137-145)
[2024-06-09 09:17] LABS: Glucose Point of Care 164 mg/dl (65-105)
--- NOTE | 2024-06-09 09:26 | WPDANESPN ---
Anes - Prog Note Post-Op Date/Time: 06/09/24 09:26 Cardiovascular status: normal Respiratory status: normal Airway patency: baseline Mental status: baseline Post-Op hydration status: normal Vital Signs: Last Vital Signs Temp 36.5 C 06/09/24 06:07 Pulse 74 06/09/24 06:07 Resp 18 06/09/24 06:07 BP 149/85 H 06/09/24 06:07 Pulse Ox 93 06/09/24 06:07 O2 Del Method Room Air 06/08/24 20:20 O2 Flow Rate 8 06/08/24 16:20 Pain Score (VAS): 0/10 I/O: Intake & Output 06/08/24 06/09/24 06/09/24 23:59 07:59 15:59 Intake Total 870 650 Balance 870 650 Laboratory Tests 06/09/24 05:35 06/09/24 05:35 06/08/24 06/08/24 06/08/24 11:54 16:30 20:07 WBC RBC Hgb Hct MCV MCH MCHC RDW Plt Count MPV Immature Gran % (Auto) Neut % (Auto) Lymph % (Auto) [place] % (Auto) Eos % (Auto) Baso % (Auto) Lymph # (Auto) [place] # (Auto) Eos # (Auto) Baso # (Auto) Abs Immat Gran (auto) Absolute Neuts (auto) Absolute Nucleated RBC Nucleated RBC % Sodium Potassium Chloride Carbon Dioxide Anion Gap BUN Creatinine Estim Creat Clear Calc Estimated GFR Glucose POC Capillary Glucose 163 H 206 H 167 H Calcium Magnesium Total Bilirubin AST ALT Alkaline Phosphatase Total Protein Albumin 06/09/24 06/09/24 05:35 09:11 WBC 6.7 RBC 4.45 L Hgb 12.9 L Hct 38.0 L MCV 85.4 MCH 29.0 MCHC 33.9 RDW 12.5 Plt Count 182 MPV 10.7 H Immature Gran % (Auto) 0.7 H Neut % (Auto) 68.6 Lymph % (Auto) 18.9 [place] % (Auto) 8.6 H Eos % (Auto) 2.5 Baso % (Auto) 0.7 Lymph # (Auto) 1.27 [place] # (Auto) 0.6 Eos # (Auto) 0.2 Baso # (Auto) 0.1 Abs Immat Gran (auto) 0.05 H Absolute Neuts (auto) 4.6 Absolute Nucleated RBC 0.000 Nucleated RBC % 0.0 Sodium 134 L Potassium 4.2 Chloride 104 Carbon Dioxide 29 Anion Gap 1 L BUN 8 L Creatinine 0.70 Estim Creat Clear Calc 117 Estimated GFR > 60 Glucose 157 H POC Capillary Glucose 164 H Calcium 8.3 L Magnesium 1.7 Total Bilirubin 0.6 AST 50 ALT 77 H Alkaline Phosphatase 155 H Total Protein 6.0 L Albumin 3.0 L Post-procedural complaints: none Patient Feedback: Patient satisfied with anesthetic care.
[2024-06-09] MEDS: SENNA/DOCUSATE SODIUM TABLET 2 TAB PO ×2 (09:50→17:50)
[2024-06-09] MEDS: lisinopriL 5 MG TABLET PO (09:50)
[2024-06-09] MEDS: polyethylene glycoL 3350 17 GM POWD.PACK PO (09:51)
[2024-06-09] MEDS: SACCHAROMYCES BOULARDII 250 MG CAPSULE PO ×2 (09:51→17:50)
[2024-06-09] MEDS: ENOXAPARIN 40 MG/0.4 ML SYRINGE SUB-Q (09:51)
[2024-06-09] MEDS: amLODIPine BESYLATE 2.5 MG TABLET PO (09:51)
[2024-06-09] MEDS: INSULIN ASPART (*BKC) 100 UNITS/ML 6 UNITS SUB-Q ×3 (09:52→17:51)
--- NOTE | 2024-06-09 10:51 | P.PNOP_ITS ---
Progress Note: A&P Assessment and Plan (1) Abscess of left ring finger: Code(s): L02.512 - Cutaneous abscess of left hand Status: Acute Subjective Subjective Date/Time Seen: 06/09/24 10:51 Objective Data Vital Signs Vital Signs: Vital Signs - 24 hr 06/08/24 14:00 06/08/24 16:07 06/08/24 16:20 Temperature 36.7 C 36.2 C L Pulse Rate 88 96 94 Respiratory Rate 24 H 14 18 Blood Pressure 184/91 H 152/100 H 121/68 Pulse Oximetry 97 100 100 Oxygen Delivery Simple Face Mask Simple Face Mask Oxygen Flow Rate 8 8 06/08/24 16:35 06/08/24 16:50 06/08/24 17:10 Temperature 36.7 C Pulse Rate 92 90 86 Respiratory Rate 20 15 24 H Blood Pressure 138/66 122/58 L 163/76 H Pulse Oximetry 95 93 95 Oxygen Delivery Room Air Room Air Oxygen Flow Rate 06/08/24 17:25 06/08/24 18:20 06/08/24 20:20 Temperature 36.9 C 37.0 C Pulse Rate 84 82 Respiratory Rate 12 20 Blood Pressure 171/79 H 166/77 H Pulse Oximetry 96 90 Oxygen Delivery Room Air Oxygen Flow Rate 06/08/24 22:07 06/09/24 02:00 06/09/24 06:07 Temperature 37.1 C 36.8 C 36.5 C Pulse Rate 89 84 74 Respiratory Rate 18 18 18 Blood Pressure 147/64 H 144/75 H 149/85 H Pulse Oximetry 94 95 93 Oxygen Delivery Oxygen Flow Rate 06/09/24 09:49 06/09/24 10:07 Temperature 36.4 C Pulse Rate 83 83 Respiratory Rate 18 Blood Pressure 172/77 H 172/77 H Pulse Oximetry 93 Oxygen Delivery Oxygen Flow Rate Intake/Output Intake/Output: Intake & Output 06/06/24 06/07/24 06/08/24 06/09/24 23:59 23:59 23:59 23:59 Intake Total 1550 3266.7 2700 890 Balance 1550 3266.7 2700 890 Meds/Results Medications: Active Medications Generic Name Dose Route Start Last Admin Trade Name Freq PRN Reason Stop Dose Admin Acetaminophen 650 mg 06/06/24 19:01 06/07/24 12:31 Acetaminophen 325 Mg Tablet PO 650 mg Q4H PRN Administration Mild Pain (1-3) or Fever Amlodipine Besylate 2.5 mg 06/08/24 09:00 06/09/24 09:51 Amlodipine Besylate 2.5 Mg Tablet PO 2.5 mg QAM INESSA Administration Benzocaine 1 lozenge 06/06/24 21:16 06/07/24 04:52 Benzocaine/Menthol (*Bkc) 18 Ea Lozenge PO 1 lozenge PRN PRN Administration Sore Throat Dextrose 12.5 gm 06/06/24 20:38 Dextrose 50% 25 Gm/50 Ml Syringe IV PUSH PRN PRN Hypoglycemia Protocol Enoxaparin Sodium 40 mg 06/09/24 09:00 06/09/24 09:51 Enoxaparin 40 Mg/0.4 Ml Syringe SUB-Q 40 mg DAILY INESSA Administration Glucagon 1 mg 06/06/24 20:38 Glucagon For Inj 1 Mg Vial IM PRN PRN Hypoglycemia Protocol Glucose 15 gm 06/06/24 20:38 Glucose Oral Gel 15 Gm Of Glucse In 37.5 Gm Tube PO PRN PRN Hypoglycemia Protocol Hydralazine HCl 10 mg 06/06/24 20:43 Hydralazine Hcl 20 Mg/Ml Vial IV PUSH Q6HR PRN Blood Pressure - High Dextrose 1,000 mls @ 100 mls/hr 06/06/24 20:38 Dextrose 5% 1,000 Ml IVPB PRN PRN Hypoglycemia Protocol Levofloxacin/Dextrose 750 mg in 150 mls @ 100 mls/hr 06/07/24 15:00 06/08/24 18:57 Levaquin 750 Mg/D5w 150 Ml IVPB Infused Q24H INESSA Infusion Vancomycin HCl 1,750 mg in 500 mls @ 250 mls/hr 06/08/24 06:00 06/09/24 05:35 Vancomycin 1,750 Mg/Ns 500 Ml IVPB 250 mls/hr Q12H INESSA Administration Insulin Aspart 2 - 5 units 06/07/24 08:00 06/09/24 09:42 Insulin Aspart (*Bkc) 100 Units/Ml SUB-Q Not Given [facility] INESSA Protocol Insulin Aspart 6 units 06/07/24 08:00 06/09/24 09:52 Insulin Aspart (*Bkc) 100 Units/Ml 0.067 units/kg (6 units) 6 units SUB-Q Administration [facility] Insulin Glargine 14 units 06/06/24 21:00 06/08/24 20:22 Insulin Glargine (*Bkc) 100 Units/Ml 0.15 units/kg (14 units) 14 units SUB-Q Administration [facility] Lisinopril 5 mg 06/07/24 09:00 06/09/24 09:50 Lisinopril 5 Mg Tablet PO 5 mg QAM INESSA Administration Morphine Sulfate 2 mg 06/06/24 20:42 06/08/24 17:31 Morphine Sulfate (*Crx) 2 Mg/Ml Inj IV PUSH 2 mg Q4H PRN Administration Pain Rated 7-10 Ondansetron HCl 4 mg 06/06/24 19:01 Ondansetron Inj 4 Mg/2 Ml Vial IV PUSH Q4H PRN Nausea Oxycodone/Acetaminophen 1 tablet 06/06/24 20:41 06/08/24 20:23 Oxycodone/Acetaminophen (*Crx) 5-325 Mg Tablet PO 1 tablet Q4H PRN Administration Pain Rated 7-10 Phenol 1 spray 06/06/24 21:21 Phenol/Sod Pheno Hubbard Mayorga (*Bkc) MUCOUS MEM PRN PRN Sore Throat Polyethylene Glycol 17 gm 06/07/24 09:00 06/09/24 09:51 Polyethylene Glycol 3350 17 Gm Powd.Pack PO 17 gm QAM INESSA Administration Saccharomyces Boulardii 250 mg 06/07/24 17:00 06/09/24 09:51 Saccharomyces Boulardii 250 Mg Capsule PO 250 mg BID INESSA Administration Senna/Docusate Sodium 2 tab 06/08/24 17:00 06/09/24 09:50 Senna/Docusate Sodium Tablet PO 2 tab BID INESSA Administration Radiology Results: ITS Impressions Hand X-Ray 06/06/24 12:31 IMPRESSION: 1. 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 No acute osseous abnormality. Hand CT 06/06/24 18:11 IMPRESSION: No evidence of osteomyelitis or fracture. Possible cellulitis in the dorsal aspect of the fourth finger. Clinical correlation advised. Hand MRI 06/07/24 16:26 IMPRESSION: 1. Cellulitis surrounding a 12 x 10 x 3 mm subcutaneous abscess dorsal to the head of the fourth proximal phalanx. No osteomyelitis. Labs Labs: Laboratory Results - last 24 hr 06/08/24 06/08/24 06/08/24 11:54 16:30 20:07 WBC RBC Hgb Hct MCV MCH MCHC RDW Plt Count MPV Immature Gran % (Auto) Neut % (Auto) Lymph % (Auto) [place] % (Auto) Eos % (Auto) Baso % (Auto) Lymph # (Auto) [place] # (Auto) Eos # (Auto) Baso # (Auto) Abs Immat Gran (auto) Absolute Neuts (auto) Absolute Nucleated RBC Nucleated RBC % Sodium Potassium Chloride Carbon Dioxide Anion Gap BUN Creatinine Estim Creat Clear Calc Estimated GFR Glucose POC Capillary Glucose 163 H 206 H 167 H Calcium Magnesium Total Bilirubin AST ALT Alkaline Phosphatase Total Protein Albumin 06/09/24 06/09/24 05:35 09:11 WBC 6.7 RBC 4.45 L Hgb 12.9 L Hct 38.0 L MCV 85.4 MCH 29.0 MCHC 33.9 RDW 12.5 Plt Count 182 MPV 10.7 H Immature Gran % (Auto) 0.7 H Neut % (Auto) 68.6 Lymph % (Auto) 18.9 [place] % (Auto) 8.6 H Eos % (Auto) 2.5 Baso % (Auto) 0.7 Lymph # (Auto) 1.27 [place] # (Auto) 0.6 Eos # (Auto) 0.2 Baso # (Auto) 0.1 Abs Immat Gran (auto) 0.05 H Absolute Neuts (auto) 4.6 Absolute Nucleated RBC 0.000 Nucleated RBC % 0.0 Sodium 134 L Potassium 4.2 Chloride 104 Carbon Dioxide 29 Anion Gap 1 L BUN 8 L Creatinine 0.70 Estim Creat Clear Calc 117 Estimated GFR > 60 Glucose 157 H POC Capillary Glucose 164 H Calcium 8.3 L Magnesium 1.7 Total Bilirubin 0.6 AST 50 ALT 77 H Alkaline Phosphatase 155 H Total Protein 6.0 L Albumin 3.0 L
--- NOTE | 2024-06-09 10:55 | PM.PNORT ---
Progress Note: A&P Assessment and Plan (1) Abscess of left ring finger: Code(s): L02.512 - Cutaneous abscess of left hand Status: Acute Assessment and Plan: Patient is postoperative day 1. After incision and drainage of abscess left ring finger. He is feeling less discomfort today. I discussed findings with patient and his . See the operative note. I have consult Dr. Ferguson for recommendations on wound care and further treatment. Subjective Subjective Date/Time Seen: 06/09/24 10:55 Objective Data Vital Signs Vital Signs: Vital Signs - 24 hr 06/08/24 14:00 06/08/24 16:07 06/08/24 16:20 Temperature 36.7 C 36.2 C L Pulse Rate 88 96 94 Respiratory Rate 24 H 14 18 Blood Pressure 184/91 H 152/100 H 121/68 Pulse Oximetry 97 100 100 Oxygen Delivery Simple Face Mask Simple Face Mask Oxygen Flow Rate 8 8 06/08/24 16:35 06/08/24 16:50 06/08/24 17:10 Temperature 36.7 C Pulse Rate 92 90 86 Respiratory Rate 20 15 24 H Blood Pressure 138/66 122/58 L 163/76 H Pulse Oximetry 95 93 95 Oxygen Delivery Room Air Room Air Oxygen Flow Rate 06/08/24 17:25 06/08/24 18:20 06/08/24 20:20 Temperature 36.9 C 37.0 C Pulse Rate 84 82 Respiratory Rate 12 20 Blood Pressure 171/79 H 166/77 H Pulse Oximetry 96 90 Oxygen Delivery Room Air Oxygen Flow Rate 06/08/24 22:07 06/09/24 02:00 06/09/24 06:07 Temperature 37.1 C 36.8 C 36.5 C Pulse Rate 89 84 74 Respiratory Rate 18 18 18 Blood Pressure 147/64 H 144/75 H 149/85 H Pulse Oximetry 94 95 93 Oxygen Delivery Oxygen Flow Rate 06/09/24 09:49 06/09/24 10:07 Temperature 36.4 C Pulse Rate 83 83 Respiratory Rate 18 Blood Pressure 172/77 H 172/77 H Pulse Oximetry 93 Oxygen Delivery Oxygen Flow Rate Intake/Output Intake/Output: Intake & Output 06/06/24 06/07/24 06/08/24 06/09/24 23:59 23:59 23:59 23:59 Intake Total 1550 3266.7 2700 890 Balance 1550 3266.7 2700 890 Meds/Results Medications: Active Medications Generic Name Dose Route Start Last Admin Trade Name Freq PRN Reason Stop Dose Admin Acetaminophen 650 mg 06/06/24 19:01 06/07/24 12:31 Acetaminophen 325 Mg Tablet PO 650 mg Q4H PRN Administration Mild Pain (1-3) or Fever Amlodipine Besylate 2.5 mg 06/08/24 09:00 06/09/24 09:51 Amlodipine Besylate 2.5 Mg Tablet PO 2.5 mg QAM INESSA Administration Benzocaine 1 lozenge 06/06/24 21:16 06/07/24 04:52 Benzocaine/Menthol (*Bkc) 18 Ea Lozenge PO 1 lozenge PRN PRN Administration Sore Throat Dextrose 12.5 gm 06/06/24 20:38 Dextrose 50% 25 Gm/50 Ml Syringe IV PUSH PRN PRN Hypoglycemia Protocol Enoxaparin Sodium 40 mg 06/09/24 09:00 06/09/24 09:51 Enoxaparin 40 Mg/0.4 Ml Syringe SUB-Q 40 mg DAILY INESSA Administration Glucagon 1 mg 06/06/24 20:38 Glucagon For Inj 1 Mg Vial IM PRN PRN Hypoglycemia Protocol Glucose 15 gm 06/06/24 20:38 Glucose Oral Gel 15 Gm Of Glucse In 37.5 Gm Tube PO PRN PRN Hypoglycemia Protocol Hydralazine HCl 10 mg 06/06/24 20:43 Hydralazine Hcl 20 Mg/Ml Vial IV PUSH Q6HR PRN Blood Pressure - High Dextrose 1,000 mls @ 100 mls/hr 06/06/24 20:38 Dextrose 5% 1,000 Ml IVPB PRN PRN Hypoglycemia Protocol Levofloxacin/Dextrose 750 mg in 150 mls @ 100 mls/hr 06/07/24 15:00 06/08/24 18:57 Levaquin 750 Mg/D5w 150 Ml IVPB Infused Q24H INESSA Infusion Vancomycin HCl 1,750 mg in 500 mls @ 250 mls/hr 06/08/24 06:00 06/09/24 05:35 Vancomycin 1,750 Mg/Ns 500 Ml IVPB 250 mls/hr Q12H INESSA Administration Insulin Aspart 2 - 5 units 06/07/24 08:00 06/09/24 09:42 Insulin Aspart (*Bkc) 100 Units/Ml SUB-Q Not Given [facility] Protocol Insulin Aspart 6 units 06/07/24 08:00 06/09/24 09:52 Insulin Aspart (*Bkc) 100 Units/Ml 0.067 units/kg (6 units) 6 units SUB-Q Administration [facility] Insulin Glargine 14 units 06/06/24 21:00 06/08/24 20:22 Insulin Glargine (*Bkc) 100 Units/Ml 0.15 units/kg (14 units) 14 units SUB-Q Administration [facility] Lisinopril 5 mg 06/07/24 09:00 06/09/24 09:50 Lisinopril 5 Mg Tablet PO 5 mg QAM [facility] Administration Morphine Sulfate 2 mg 06/06/24 20:42 06/08/24 17:31 Morphine Sulfate (*Crx) 2 Mg/Ml Inj IV PUSH 2 mg Q4H PRN Administration Pain Rated 7-10 Ondansetron HCl 4 mg 06/06/24 19:01 Ondansetron Inj 4 Mg/2 Ml Vial IV PUSH Q4H PRN Nausea Oxycodone/Acetaminophen 1 tablet 06/06/24 20:41 06/08/24 20:23 Oxycodone/Acetaminophen (*Crx) 5-325 Mg Tablet PO 1 tablet Q4H PRN Administration Pain Rated 7-10 Phenol 1 spray 06/06/24 21:21 Phenol/Sod Pheno Emmett Mayorga (*Bkc) MUCOUS MEM PRN PRN Sore Throat Polyethylene Glycol 17 gm 06/07/24 09:00 06/09/24 09:51 Polyethylene Glycol 3350 17 Gm Powd.Pack PO 17 gm QAM [facility] Administration Saccharomyces Boulardii 250 mg 06/07/24 17:00 06/09/24 09:51 Saccharomyces Boulardii 250 Mg Capsule PO 250 mg BID [facility] Administration Senna/Docusate Sodium 2 tab 06/08/24 17:00 06/09/24 09:50 Senna/Docusate Sodium Tablet PO 2 tab BID INESSA Administration Radiology Results: ITS Impressions Hand X-Ray 06/06/24 12:31 IMPRESSION: 1. 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 No acute osseous abnormality. Hand CT 06/06/24 18:11 IMPRESSION: No evidence of osteomyelitis or fracture. Possible cellulitis in the dorsal aspect of the fourth finger. Clinical correlation advised. Hand MRI 06/07/24 16:26 IMPRESSION: 1. Cellulitis surrounding a 12 x 10 x 3 mm subcutaneous abscess dorsal to the head of the fourth proximal phalanx. No osteomyelitis. Labs Labs: Laboratory Results - last 24 hr 06/08/24 06/08/24 06/08/24 11:54 16:30 20:07 WBC RBC Hgb Hct MCV MCH MCHC RDW Plt Count MPV Immature Gran % (Auto) Neut % (Auto) Lymph % (Auto) [place] % (Auto) Eos % (Auto) Baso % (Auto) Lymph # (Auto) [place] # (Auto) Eos # (Auto) Baso # (Auto) Abs Immat Gran (auto) Absolute Neuts (auto) Absolute Nucleated RBC Nucleated RBC % Sodium Potassium Chloride Carbon Dioxide Anion Gap BUN Creatinine Estim Creat Clear Calc Estimated GFR Glucose POC Capillary Glucose 163 H 206 H 167 H Calcium Magnesium Total Bilirubin AST ALT Alkaline Phosphatase Total Protein Albumin 06/09/24 06/09/24 05:35 09:11 WBC 6.7 RBC 4.45 L Hgb 12.9 L Hct 38.0 L MCV 85.4 MCH 29.0 MCHC 33.9 RDW 12.5 Plt Count 182 MPV 10.7 H Immature Gran % (Auto) 0.7 H Neut % (Auto) 68.6 Lymph % (Auto) 18.9 [place] % (Auto) 8.6 H Eos % (Auto) 2.5 Baso % (Auto) 0.7 Lymph # (Auto) 1.27 [place] # (Auto) 0.6 Eos # (Auto) 0.2 Baso # (Auto) 0.1 Abs Immat Gran (auto) 0.05 H Absolute Neuts (auto) 4.6 Absolute Nucleated RBC 0.000 Nucleated RBC % 0.0 Sodium 134 L Potassium 4.2 Chloride 104 Carbon Dioxide 29 Anion Gap 1 L BUN 8 L Creatinine 0.70 Estim Creat Clear Calc 117 Estimated GFR > 60 Glucose 157 H POC Capillary Glucose 164 H Calcium 8.3 L Magnesium 1.7 Total Bilirubin 0.6 AST 50 ALT 77 H Alkaline Phosphatase 155 H Total Protein 6.0 L Albumin 3.0 L
--- NOTE | 2024-06-09 11:44 | PM.IMPN ---
Progress Note: A&P Assessment and Plan (1) Strep throat: Code(s): J02.0 - Streptococcal pharyngitis Status: Acute (2) Non compliance w medication regimen: Code(s): Z91.148 - Patient's other noncompliance with medication regimen for other reason Status: Acute (3) Cellulitis of hand: Code(s): L03.119 - Cellulitis of unspecified part of limb Status: Acute (4) Diabetes mellitus: Code(s): E11.9 - Type 2 diabetes mellitus without complications Status: Acute (5) Hyponatremia: Code(s): E87.1 - Hypo-osmolality and hyponatremia Status: Acute (6) Hypertension: Code(s): I10 - Essential (primary) hypertension Status: Acute Plan 49-year-old male with no known past medical history of diabetes mellitus, not on any medications who presented with left hand cellulitis after having a traumatic injury from a car door. 1. Left hand cellulitis with abscess s/p I and D CT had been negative for any abscess/fracture/osteomyelitis MRI hand showed Cellulitis with abscess, no osteomyelitis Continue vancomycin and Levofloxacin Appreciate help from Orthopecis surgery Awaiting tissue culture 2. Diabetes mellitus: A1c 12.3 SSI with accucheks lantus 14 units daily 3. Hypertension Continue Lisinopril and Amlodipine Add p.r.n. IV hydralazine 4. Hyponatremia, resolved s/p IVF Na 134 from 128 5. Group a strep pharyngitis: Already on antibiotics as mentioned above Supportive care with lozenges, phenol spray p.r.n. 6. DVT prophylaxis: Heparin subQ Subjective Date/time seen: 06/09/24 11:44 Interval history: Patient comfortable at bedside S/p I and D. Review of Systems Review of Systems: All systems reviewed & are unremarkable except as noted in HPI and below Exam Const: General: comfortable HENMT: Face/Nose/Sinus: Normal nares present Mouth: Yes moist mucous membranes Eyes: Sclera: sclerae normal Neck: Neck: supple Resp: Effort & Inspection: normal respiratory effort Auscultation: clear to auscultation bilaterally Cardio: Rate: regular rate Rhythm: regular rhythm GI: Auscultation: normal bowel sounds Skin: General skin exam: wounds noted Wounds: wounds noted Other: Noted skin break with surrounding mild erythema on upper back, noted redness and swelling of of middle finger along the interphalangeal joint and knuckle area Neuro: Speech: normal speech Motor exam (neuro): 5/5 motor strength present throughout Extrem: General: normal to inspection Psych: Mental Status: mental status grossly normal Objective Data Vital Signs Vital Signs: Vital Signs - 24 hr 06/08/24 14:00 06/08/24 16:07 06/08/24 16:20 Temperature 98.1 F 97.2 F L Pulse Rate 88 96 94 Respiratory Rate 24 H 14 18 Blood Pressure 184/91 H 152/100 H 121/68 Pulse Oximetry 97 100 100 Oxygen Delivery Simple Face Mask Simple Face Mask Oxygen Flow Rate 8 8 06/08/24 16:35 06/08/24 16:50 06/08/24 17:10 Temperature 98.0 F Pulse Rate 92 90 86 Respiratory Rate 20 15 24 H Blood Pressure 138/66 122/58 L 163/76 H Pulse Oximetry 95 93 95 Oxygen Delivery Room Air Room Air Oxygen Flow Rate 06/08/24 17:25 06/08/24 18:20 06/08/24 20:20 Temperature 98.4 F 98.6 F Pulse Rate 84 82 Respiratory Rate 12 20 Blood Pressure 171/79 H 166/77 H Pulse Oximetry 96 90 Oxygen Delivery Room Air Oxygen Flow Rate 06/08/24 22:07 06/09/24 02:00 06/09/24 06:07 Temperature 98.7 F 98.2 F 97.7 F Pulse Rate 89 84 74 Respiratory Rate 18 18 18 Blood Pressure 147/64 H 144/75 H 149/85 H Pulse Oximetry 94 95 93 Oxygen Delivery Oxygen Flow Rate 06/09/24 09:49 06/09/24 10:07 Temperature 97.6 F Pulse Rate 83 83 Respiratory Rate 18 Blood Pressure 172/77 H 172/77 H Pulse Oximetry 93 Oxygen Delivery Oxygen Flow Rate Intake/Output Intake/Output: Intake & Output 06/06/24 06/07/24 06/08/24 06/09/24 23:59 23:59 23:59 23:59 Intake Total 1550 3266.7 2700 890 Balance 1550 3266.7 2700 890 Meds/Results Medications: Active Medications Generic Name Dose Route Start Last Admin Trade Name Freq PRN Reason Stop Dose Admin Acetaminophen 650 mg 06/06/24 19:01 06/07/24 12:31 Acetaminophen 325 Mg Tablet PO 650 mg Q4H PRN Administration Mild Pain (1-3) or Fever Amlodipine Besylate 2.5 mg 06/08/24 09:00 06/09/24 09:51 Amlodipine Besylate 2.5 Mg Tablet PO 2.5 mg QAM INESSA Administration Benzocaine 1 lozenge 06/06/24 21:16 06/07/24 04:52 Benzocaine/Menthol (*Bkc) 18 Ea Lozenge PO 1 lozenge PRN PRN Administration Sore Throat Dextrose 12.5 gm 06/06/24 20:38 Dextrose 50% 25 Gm/50 Ml Syringe IV PUSH PRN PRN Hypoglycemia Protocol Enoxaparin Sodium 40 mg 06/09/24 09:00 06/09/24 09:51 Enoxaparin 40 Mg/0.4 Ml Syringe SUB-Q 40 mg DAILY INESSA Administration Glucagon 1 mg 06/06/24 20:38 Glucagon For Inj 1 Mg Vial IM PRN PRN Hypoglycemia Protocol Glucose 15 gm 06/06/24 20:38 Glucose Oral Gel 15 Gm Of Glucse In 37.5 Gm Tube PO PRN PRN Hypoglycemia Protocol Hydralazine HCl 10 mg 06/06/24 20:43 Hydralazine Hcl 20 Mg/Ml Vial IV PUSH Q6HR PRN Blood Pressure - High Dextrose 1,000 mls @ 100 mls/hr 06/06/24 20:38 Dextrose 5% 1,000 Ml IVPB PRN PRN Hypoglycemia Protocol Levofloxacin/Dextrose 750 mg in 150 mls @ 100 mls/hr 06/07/24 15:00 06/08/24 18:57 Levaquin 750 Mg/D5w 150 Ml IVPB Infused Q24H INESSA Infusion Vancomycin HCl 1,750 mg in 500 mls @ 250 mls/hr 06/08/24 06:00 06/09/24 05:35 Vancomycin 1,750 Mg/Ns 500 Ml IVPB 250 mls/hr Q12H INESSA Administration Insulin Aspart 2 - 5 units 06/07/24 08:00 06/09/24 09:42 Insulin Aspart (*Bkc) 100 Units/Ml SUB-Q Not Given [facility] Protocol Insulin Aspart 6 units 06/07/24 08:00 06/09/24 09:52 Insulin Aspart (*Bkc) 100 Units/Ml 0.067 units/kg (6 units) 6 units SUB-Q Administration T[facility] INESSA Insulin Glargine 14 units 06/06/24 21:00 06/08/24 20:22 Insulin Glargine (*Bkc) 100 Units/Ml 0.15 units/kg (14 units) 14 units SUB-Q Administration [facility] INESSA Lisinopril 5 mg 06/07/24 09:00 06/09/24 09:50 Lisinopril 5 Mg Tablet PO 5 mg QAM INESSA Administration Morphine Sulfate 2 mg 06/06/24 20:42 06/08/24 17:31 Morphine Sulfate (*Crx) 2 Mg/Ml Inj IV PUSH 2 mg Q4H PRN Administration Pain Rated 7-10 Ondansetron HCl 4 mg 06/06/24 19:01 Ondansetron Inj 4 Mg/2 Ml Vial IV PUSH Q4H PRN Nausea Oxycodone/Acetaminophen 1 tablet 06/06/24 20:41 06/08/24 20:23 Oxycodone/Acetaminophen (*Crx) 5-325 Mg Tablet PO 1 tablet Q4H PRN Administration Pain Rated 7-10 Phenol 1 spray 06/06/24 21:21 Phenol/Sod Pheno Loa Mayorga (*Bkc) MUCOUS MEM PRN PRN Sore Throat Polyethylene Glycol 17 gm 06/07/24 09:00 06/09/24 09:51 Polyethylene Glycol 3350 17 Gm Powd.Pack PO 17 gm QAM [facility] Administration Saccharomyces Boulardii 250 mg 06/07/24 17:00 06/09/24 09:51 Saccharomyces Boulardii 250 Mg Capsule PO 250 mg BID INESSA Administration Senna/Docusate Sodium 2 tab 06/08/24 17:00 06/09/24 09:50 Senna/Docusate Sodium Tablet PO 2 tab BID INESSA Administration Radiology Results: ITS Impressions Hand X-Ray 06/06/24 12:31 IMPRESSION: 1. 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 No acute osseous abnormality. Hand CT 06/06/24 18:11 IMPRESSION: No evidence of osteomyelitis or fracture. Possible cellulitis in the dorsal aspect of the fourth finger. Clinical correlation advised. Hand MRI 06/07/24 16:26 IMPRESSION: 1. Cellulitis surrounding a 12 x 10 x 3 mm subcutaneous abscess dorsal to the head of the fourth proximal phalanx. No osteomyelitis. Labs Labs: Laboratory Results - last 24 hr 06/08/24 06/08/24 06/08/24 11:54 16:30 20:07 WBC RBC Hgb Hct MCV MCH MCHC RDW Plt Count MPV Immature Gran % (Auto) Neut % (Auto) Lymph % (Auto) [place] % (Auto) Eos % (Auto) Baso % (Auto) Lymph # (Auto) [place] # (Auto) Eos # (Auto) Baso # (Auto) Abs Immat Gran (auto) Absolute Neuts (auto) Absolute Nucleated RBC Nucleated RBC % Sodium Potassium Chloride Carbon Dioxide Anion Gap BUN Creatinine Estim Creat Clear Calc Estimated GFR Glucose POC Capillary Glucose 163 H 206 H 167 H Calcium Magnesium Total Bilirubin AST ALT Alkaline Phosphatase Total Protein Albumin 06/09/24 06/09/24 05:35 09:11 WBC 6.7 RBC 4.45 L Hgb 12.9 L Hct 38.0 L MCV 85.4 MCH 29.0 MCHC 33.9 RDW 12.5 Plt Count 182 MPV 10.7 H Immature Gran % (Auto) 0.7 H Neut % (Auto) 68.6 Lymph % (Auto) 18.9 [place] % (Auto) 8.6 H Eos % (Auto) 2.5 Baso % (Auto) 0.7 Lymph # (Auto) 1.27 [place] # (Auto) 0.6 Eos # (Auto) 0.2 Baso # (Auto) 0.1 Abs Immat Gran (auto) 0.05 H Absolute Neuts (auto) 4.6 Absolute Nucleated RBC 0.000 Nucleated RBC % 0.0 Sodium 134 L Potassium 4.2 Chloride 104 Carbon Dioxide 29 Anion Gap 1 L BUN 8 L Creatinine 0.70 Estim Creat Clear Calc 117 Estimated GFR > 60 Glucose 157 H POC Capillary Glucose 164 H Calcium 8.3 L Magnesium 1.7 Total Bilirubin 0.6 AST 50 ALT 77 H Alkaline Phosphatase 155 H Total Protein 6.0 L Albumin 3.0 L Quality VTE Prophylaxis VTE prophylaxis: pharmacologic ordered
[2024-06-09 12:13] LABS: Glucose Point of Care 169 mg/dl (65-105)
[2024-06-09] MEDS: levoFLOXacin 750 MG TABLET PO (12:59)
[2024-06-09] MEDS: oxyCODONE/ACETAMINOPHEN (*CRX) 5-325 MG TABLET 1 TABLET PO (13:28)
--- NOTE | 2024-06-09 16:53 | P.CONS_ITS ---
Assessment and Plan Assessment and plan (1) Open wound of finger: Qualifiers: Encounter type: initial encounter Qualified Code(s): S61.209A - Unspecified open wound of unspecified finger without damage to nail, initial encounter Code(s): S61.209A - Unspecified open wound of unspecified finger without damage to nail, initial encounter Status: Acute Assessment and Plan: 49yo male s/p L RF dorsal abscess I&D doing well reviwed images and agree with reports reviewed DR. Sanches op notes discussed impression and Dx and hopeful expectaiton for continued healing with conservative mgmt and no surgical intervention indicated at this time Plan: 1) advise on warm water and iodine or peroxide soaks for 5 minutes BID 2) abs per primary - transition to oral when approrpiate 3) dressing instructions revwied - clean with soap and water. can be open to air to dry. cover with banditrain and non-stick dressing. elevate 4) f/u in my office in 1-2 weeks 5) r-consult inpatient as needed (2) Cellulitis of hand: Code(s): L03.119 - Cellulitis of unspecified part of limb Status: Acute (3) Abscess of left ring finger: Code(s): L02.512 - Cutaneous abscess of left hand Status: Acute HPI Data of Consult Date/Time: 06/09/24 16:53 Requesting Physician: Marjorie Ponce DO Primary Care Provider: Ana M Cavazos MD Consult Narrative Narrative: Panchito Jones is a 49 year old male POD # 1 s/p leftr ring finger dorsal finger abscess I&D by Dr. Sanches. given extent of injury and wound plastics consulted. patient notes infection started a few weeks ago after scratching hand on car door and developed cellulitis. Dr. Sanches notes intact extensor tendons and periosteum and purulent drainage washed out after eschar debridement patient seen and examined at bedside noting feeling better since I&D no new concerns PMFSH Family History Family History Other No significant family history Social History Social History Smoking status: Current every day smoker Tobacco type: e-cigarettes/vaping Additional smoking assessment comments: former cigarrete user Alcohol intake: current Drinks per week: 5 Substance use: never Do You Feel Safe in your Home?: Yes Lack of Transportation: No Lack of Food: Never True Current Housing: I Have Housing Concerned About Future Housing: No Difficulty Paying Gas/Electric Bills: No Difficulty Paying for Meds: No Currently Unemployed: No Education: Trade/Vocational Certificate Difficulty w/ Childcare or Family Care: No Spiritual care concerns: No Meds Home Medications and Allergies Home Medications ?Medication ?Instructions ?Recorded ?Confirmed ?Type No Home Medications 06/06/24 06/06/24 History Allergies Allergy/AdvReac Type Severity Reaction Status Date / Time codeine AdvReac Unknown Verified 06/06/24 10:43 Vital Signs Vital Signs - 24 hr 06/08/24 17:10 06/08/24 17:25 06/08/24 18:20 Temperature 36.7 C 36.9 C 37.0 C Pulse Rate 86 84 82 Respiratory Rate 24 H 12 20 Blood Pressure 163/76 H 171/79 H 166/77 H Pulse Oximetry 95 96 90 Oxygen Delivery 06/08/24 20:20 06/08/24 22:07 06/09/24 02:00 Temperature 37.1 C 36.8 C Pulse Rate 89 84 Respiratory Rate 18 18 Blood Pressure 147/64 H 144/75 H Pulse Oximetry 94 95 Oxygen Delivery Room Air 06/09/24 06:07 06/09/24 08:00 06/09/24 09:49 Temperature 36.5 C Pulse Rate 74 83 Respiratory Rate 18 Blood Pressure 149/85 H 172/77 H Pulse Oximetry 93 Oxygen Delivery Room Air 06/09/24 10:07 06/09/24 14:07 Temperature 36.4 C 36.5 C Pulse Rate 83 78 Respiratory Rate 18 18 Blood Pressure 172/77 H 170/66 H Pulse Oximetry 93 94 Oxygen Delivery Exam 2 Narrative: Gen: dressing in place to left hand and ring finger. 6mm open wound L RF over pipj witout purulent drainage. serosang fluid in base and granulating edges. general digit induration and edema superficial abrasion over mpj proximally and hyperemia exteding just onto dorsum hand proximal to MPJ. ROM: fds/fdp/edc appear intact but limited from swelling and stiffness Vascular: Warm and well perfused Sensation: Intact to light touch Results Labs 06/09/24 05:35 06/09/24 05:35 Labs: Short CBC 06/09/24 Range/Units 05:35 WBC 6.7 (4.5-10.0) K/mm3 Hgb 12.9 L (14.0-18.0) g/dL Hct 38.0 L (42.0-52.0) % Plt Count 182 (150-375) k/mm3 BMP 06/09/24 05:35 Sodium 134 L Potassium 4.2 Chloride 104 Carbon Dioxide 29 BUN 8 L Creatinine 0.70 Glucose 157 H Calcium 8.3 L Liver Function 06/09/24 Range/Units 05:35 Total Bilirubin 0.6 (0.2-1.3) mg/dL AST 50 (17-59) U/L ALT 77 H (6-50) U/L Alkaline Phosphatase 155 H (38-126) U/L Albumin 3.0 L (3.5-5.1) g/dL
[2024-06-09 17:01] LABS: Glucose Point of Care 152 mg/dl (65-105)
[2024-06-09 17:34] LABS: Vancomycin Trough 10.6 ug/mL (10.0-20.0)
[2024-06-09] MEDS: INSULIN GLARGINE (*BKC) 100 UNITS/ML 14 UNITS SUB-Q (20:46)
[2024-06-09 20:54] LABS: Glucose Point of Care 167 mg/dl (65-105)
[2024-06-10] VITALS (8 sets, daily range): BP systolic 152–185; BP diastolic 62–91; PULSE 75–83; RESP 16; TEMP 36.4–37; O2SAT 95–98
[2024-06-10] MEDS: ceFAZolin 2 GM/D5W 50 ML 2 GM/50 ML BAG IVPB ×2 (05:33→13:09)
[2024-06-10] MEDS: VANCOMYCIN 1,750 MG/NS 500 ML 1,750 MG/500 ML BAG 250 MG IVPB (06:11)
[2024-06-10 07:59] LABS: Glucose Point of Care 166 mg/dl (65-105)
[2024-06-10] MEDS: INSULIN ASPART (*BKC) 100 UNITS/ML 6 UNITS SUB-Q ×3 (08:59→17:33)
[2024-06-10] MEDS: amLODIPine BESYLATE 2.5 MG TABLET PO (09:00)
[2024-06-10] MEDS: levoFLOXacin 750 MG TABLET PO (09:01)
[2024-06-10] MEDS: SENNA/DOCUSATE SODIUM TABLET 2 TAB PO ×2 (09:01→17:31)
[2024-06-10] MEDS: SACCHAROMYCES BOULARDII 250 MG CAPSULE PO ×2 (09:02→17:32)
[2024-06-10] MEDS: lisinopriL 5 MG TABLET PO (09:02)
[2024-06-10] MEDS: ENOXAPARIN 40 MG/0.4 ML SYRINGE SUB-Q (09:02)
[2024-06-10 09:32] LABS: Basophils Percent Auto 0.7 % (0.2-1.2); Eosinophils Absolute Auto 0.2 K/mm3 (0-0.3); Eosinophils Percent Auto 2.7 % (0-4.4); Hematocrit 43.3 % (42.0-52.0); Hemoglobin 14.7 g/dL (14.0-18.0); Immature Granulocyte Absolute 0.08 K/mm3 (0.00-0.031); Immature Granulocyte Percent A 1.5 % (0-0.5); Lymphocytes Percent Auto 18.2 % (18.3-44.2); Mean Corpuscular HGB Conc 33.9 g/dl (32-36); Mean Corpuscular Hemoglobin 28.8 pg (26-34); Mean Corpuscular Volume 84.7 fl (80-100); Mean Platelet Volume 10.3 fl (7.4-10.4); Monocytes Absolute Auto 0.4 K/mm3 (0.1-0.6); Monocytes Percent Auto 6.7 % (2.6-8.5); Neutrophils Absolute Auto 3.9 K/mm3 (1.3-6.7); Neutrophils Percent Auto 70.2 % (45.5-73.1); Platelet Count Result 216 k/mm3 (150-375); Red Blood Count 5.11 M/mm3 (4.6-6.20); Red Cell Distribution Width 12.3 % (11.5-14.5); White Blood Count 5.5 K/mm3 (4.5-10.0)
[2024-06-10 09:46] LABS: Alanine Aminotransferase 90 U/L (6-50); Albumin Level 3.6 g/dL (3.5-5.1); Alkaline Phosphatase 201 U/L (38-126); Anion Gap 2 mmol/L (4-12); Aspartate Amino Transferase 63 U/L (17-59); Bilirubin,Total 0.6 mg/dL (0.2-1.3); Blood Urea Nitrogen 5 mg/dL (9-20); Calcium 8.7 mg/dL (8.4-10.2); Carbon Dioxide 30 mmol/L (22-30); Chloride 104 mmol/L (98-107); Estimated CRCL calculation 117 ml/min; Estimated Glomerular Filt Rate > 60; Glucose 189 mg/dL (65-110); Magnesium 1.7 mg/dL (1.6-2.3); Potassium 4.1 mmol/L (3.4-5.0); Sodium 136 mmol/L (137-145)
[2024-06-10 12:32] LABS: Glucose Point of Care 227 mg/dl (65-105)
[2024-06-10] MEDS: INSULIN ASPART (*BKC) 100 UNITS/ML SUB-Q (12:39)
--- NOTE | 2024-06-10 12:52 | P.PNIM_ITS ---
Progress Note: A&P Assessment and Plan (1) Cellulitis of hand: Code(s): L03.119 - Cellulitis of unspecified part of limb Status: Acute Assessment and Plan: Patient is on IV antibiotics. Will continue current treatment monitor closely (2) Diabetes mellitus: Code(s): E11.9 - Type 2 diabetes mellitus without complications Status: Acute Assessment and Plan: Stable current medications, continue current treatment (3) Strep throat: Code(s): J02.0 - Streptococcal pharyngitis Status: Acute Assessment and Plan: Resolved. (4) Non compliance w medication regimen: Code(s): Z91.148 - Patient's other noncompliance with medication regimen for other reason Status: Acute Assessment and Plan: Counseling given. (5) Hyponatremia: Code(s): E87.1 - Hypo-osmolality and hyponatremia Status: Acute Assessment and Plan: Resolved. (6) Hypertension: Code(s): I10 - Essential (primary) hypertension Status: Acute Assessment and Plan: Stable current medications, continue current treatment Plan 49-year-old male with no known past medical history of diabetes mellitus, not on any medications who presented with left hand cellulitis after having a traumatic injury from a car door. 1. Left hand cellulitis with abscess s/p I and D CT had been negative for any abscess/fracture/osteomyelitis MRI hand showed Cellulitis with abscess, no osteomyelitis Continue vancomycin and Levofloxacin Appreciate help from Orthopecis surgery Awaiting tissue culture 2. Diabetes mellitus: A1c 12.3 SSI with accucheks lantus 14 units daily 3. Hypertension Continue Lisinopril and Amlodipine Add p.r.n. IV hydralazine 4. Hyponatremia, resolved s/p IVF Na 134 from 128 5. Group a strep pharyngitis: Already on antibiotics as mentioned above Supportive care with lozenges, phenol spray p.r.n. 6. DVT prophylaxis: Heparin subQ Subjective Date/time seen: 06/10/24 12:52 Interval history: Patient is seen during morning rounds today. Patient comfortable at bedside S/p I and D Patient pain is under control. No shortness of breath or chest pain Review of Systems Review of Systems: All systems reviewed & are unremarkable except as noted in HPI and below Exam Const: General: comfortable HENMT: Face/Nose/Sinus: Normal nares present Mouth: Yes moist mucous membranes Eyes: Sclera: sclerae normal Neck: Neck: supple Resp: Effort & Inspection: normal respiratory effort Auscultation: clear to auscultation bilaterally Cardio: Rate: regular rate Rhythm: regular rhythm GI: Auscultation: normal bowel sounds Skin: General skin exam: wounds noted Wounds: wounds noted Other: Noted skin break with surrounding mild erythema on upper back, noted redness and swelling of of middle finger along the interphalangeal joint and knuckle area Neuro: Speech: normal speech Motor exam (neuro): 5/5 motor strength present throughout Extrem: General: normal to inspection Psych: Mental Status: mental status grossly normal Objective Data Vital Signs Vital Signs: Vital Signs - 24 hr 06/09/24 14:07 06/09/24 18:07 06/09/24 20:00 Temperature 36.5 C 36.6 C Pulse Rate 78 80 82 Respiratory Rate 18 19 16 Blood Pressure 170/66 H 168/64 H Pulse Oximetry 94 96 96 Oxygen Delivery Room Air 06/09/24 21:58 06/10/24 02:00 06/10/24 05:36 Temperature 37.0 C 36.7 C 37.0 C Pulse Rate 82 83 80 Respiratory Rate 16 16 16 Blood Pressure 175/91 H 164/77 H 162/67 H Pulse Oximetry 96 98 95 Oxygen Delivery 06/10/24 08:55 06/10/24 08:59 Temperature 36.9 C Pulse Rate 75 Respiratory Rate 16 Blood Pressure 172/88 H Pulse Oximetry 95 95 Oxygen Delivery Room Air Intake/Output Intake/Output: Intake & Output 06/07/24 06/08/24 06/09/24 06/10/24 23:59 23:59 23:59 23:59 Intake Total 3266.7 2700 2470 240 Balance 3266.7 2700 2470 240 Meds/Results Medications: Active Medications Generic Name Dose Route Start Last Admin Trade Name Freq PRN Reason Stop Dose Admin Acetaminophen 650 mg 06/06/24 19:01 06/07/24 12:31 Acetaminophen 325 Mg Tablet PO 650 mg Q4H PRN Administration Mild Pain (1-3) or Fever Amlodipine Besylate 2.5 mg 06/08/24 09:00 06/10/24 09:00 Amlodipine Besylate 2.5 Mg Tablet PO 2.5 mg QAM INESSA Administration Benzocaine 1 lozenge 06/06/24 21:16 06/07/24 04:52 Benzocaine/Menthol (*Bkc) 18 Ea Lozenge PO 1 lozenge PRN PRN Administration Sore Throat Dextrose 12.5 gm 06/06/24 20:38 Dextrose 50% 25 Gm/50 Ml Syringe IV PUSH PRN PRN Hypoglycemia Protocol Enoxaparin Sodium 40 mg 06/09/24 09:00 06/10/24 09:02 Enoxaparin 40 Mg/0.4 Ml Syringe SUB-Q 40 mg DAILY INESSA Administration Glucagon 1 mg 06/06/24 20:38 Glucagon For Inj 1 Mg Vial IM PRN PRN Hypoglycemia Protocol Glucose 15 gm 06/06/24 20:38 Glucose Oral Gel 15 Gm Of Glucse In 37.5 Gm Tube PO PRN PRN Hypoglycemia Protocol Hydralazine HCl 10 mg 06/06/24 20:43 Hydralazine Hcl 20 Mg/Ml Vial IV PUSH Q6HR PRN Blood Pressure - High Dextrose 1,000 mls @ 100 mls/hr 06/06/24 20:38 Dextrose 5% 1,000 Ml IVPB PRN PRN Hypoglycemia Protocol Vancomycin HCl 1,750 mg in 500 mls @ 250 mls/hr 06/08/24 06:00 06/10/24 06:11 Vancomycin 1,750 Mg/Ns 500 Ml IVPB 250 mls/hr Q12H INESSA Administration Cefazolin Sodium 2 gm in 50 mls @ 100 mls/hr 06/09/24 13:00 06/10/24 05:33 Ancef 2 Gm/D5w 50 Ml IVPB 100 mls/hr Q8HR INESSA Administration Insulin Aspart 2 - 5 units 06/07/24 08:00 06/10/24 12:39 Insulin Aspart (*Bkc) 100 Units/Ml SUB-Q 2 units TIDWM INESSA Administration Protocol Insulin Aspart 6 units 06/07/24 08:00 06/10/24 12:38 Insulin Aspart (*Bkc) 100 Units/Ml 0.067 units/kg (6 units) 6 units SUB-Q Administration TIDWM [facility] Insulin Glargine 14 units 06/06/24 21:00 06/09/24 20:46 Insulin Glargine (*Bkc) 100 Units/Ml 0.15 units/kg (14 units) 14 units SUB-Q Administration [facility] Levofloxacin 750 mg 06/09/24 13:00 06/10/24 09:01 Levofloxacin 750 Mg Tablet PO 750 mg DAILY INESSA Administration Lisinopril 5 mg 06/07/24 09:00 06/10/24 09:02 Lisinopril 5 Mg Tablet PO 5 mg QAM INESSA Administration Morphine Sulfate 2 mg 06/06/24 20:42 06/08/24 17:31 Morphine Sulfate (*Crx) 2 Mg/Ml Inj IV PUSH 2 mg Q4H PRN Administration Pain Rated 7-10 Ondansetron HCl 4 mg 06/06/24 19:01 Ondansetron Inj 4 Mg/2 Ml Vial IV PUSH Q4H PRN Nausea Oxycodone/Acetaminophen 1 tablet 06/06/24 20:41 06/09/24 13:28 Oxycodone/Acetaminophen (*Crx) 5-325 Mg Tablet PO 1 tablet Q4H PRN Administration Pain Rated 7-10 Phenol 1 spray 06/06/24 21:21 Phenol/Sod Pheno [place] (*Bkc) MUCOUS MEM PRN PRN Sore Throat Polyethylene Glycol 17 gm 06/07/24 09:00 06/10/24 09:03 Polyethylene Glycol 3350 17 Gm Powd.Pack PO Not Given QAM [facility] Saccharomyces Boulardii 250 mg 06/07/24 17:00 06/10/24 09:02 Saccharomyces Boulardii 250 Mg Capsule PO 250 mg BID INESSA Administration Senna/Docusate Sodium 2 tab 06/08/24 17:00 06/10/24 09:01 Senna/Docusate Sodium Tablet PO 2 tab BID INESSA Administration Radiology Results: ITS Impressions Hand X-Ray 06/06/24 12:31 IMPRESSION: 1. 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 No acute osseous abnormality. Hand CT 06/06/24 18:11 IMPRESSION: No evidence of osteomyelitis or fracture. Possible cellulitis in the dorsal aspect of the fourth finger. Clinical correlation advised. Hand MRI 06/07/24 16:26 IMPRESSION: 1. Cellulitis surrounding a 12 x 10 x 3 mm subcutaneous abscess dorsal to the head of the fourth proximal phalanx. No osteomyelitis. Labs Labs: Laboratory Results - last 24 hr 06/09/24 06/09/24 06/09/24 16:56 16:59 20:40 WBC RBC Hgb Hct MCV MCH MCHC RDW Plt Count MPV Immature Gran % (Auto) Neut % (Auto) Lymph % (Auto) [place] % (Auto) Eos % (Auto) Baso % (Auto) Lymph # (Auto) [place] # (Auto) Eos # (Auto) Baso # (Auto) Abs Immat Gran (auto) Absolute Neuts (auto) Absolute Nucleated RBC Nucleated RBC % Sodium Potassium Chloride Carbon Dioxide Anion Gap BUN Creatinine Estim Creat Clear Calc Estimated GFR Glucose POC Capillary Glucose 152 H 167 H Calcium Magnesium Total Bilirubin AST ALT Alkaline Phosphatase Total Protein Albumin Vancomycin Trough 10.6 06/10/24 06/10/24 06/10/24 07:52 09:22 12:05 WBC 5.5 RBC 5.11 Hgb 14.7 Hct 43.3 MCV 84.7 MCH 28.8 MCHC 33.9 RDW 12.3 Plt Count 216 MPV 10.3 Immature Gran % (Auto) 1.5 H Neut % (Auto) 70.2 Lymph % (Auto) 18.2 L [place] % (Auto) 6.7 Eos % (Auto) 2.7 Baso % (Auto) 0.7 Lymph # (Auto) 1.00 [place] # (Auto) 0.4 Eos # (Auto) 0.2 Baso # (Auto) 0.0 Abs Immat Gran (auto) 0.08 H Absolute Neuts (auto) 3.9 Absolute Nucleated RBC 0.000 Nucleated RBC % 0.0 Sodium 136 L Potassium 4.1 Chloride 104 Carbon Dioxide 30 Anion Gap 2 L BUN 5 L Creatinine 0.70 Estim Creat Clear Calc 117 Estimated GFR > 60 Glucose 189 H POC Capillary Glucose 166 H 227 H Calcium 8.7 Magnesium 1.7 Total Bilirubin 0.6 AST 63 H ALT 90 H Alkaline Phosphatase 201 H Total Protein 7.0 Albumin 3.6 Vancomycin Trough Quality VTE Prophylaxis VTE prophylaxis: pharmacologic ordered
--- NOTE | 2024-06-10 13:16 | PM.PNORT ---
Progress Note: A&P Assessment and Plan (1) Abscess of left ring finger: Code(s): L02.512 - Cutaneous abscess of left hand Status: Acute Assessment and Plan: Skin edges on the left 4th finger wound are intact. There is some immature granulation tissue at the base this wound now. I have reviewed Dr. Ferguson he has instructions regarding warm water soaks with dilute peroxide and we will initiate those and will keep the wound covered with a Band-Aid to change 3 times a day while he is in the hospital and when he gets home he can leave the finger open to air more but use a Band-Aid at night which was communicated to the patient by Dr. Ferguson. Cultures are pending and no growth so far. Clinically he has only a 5 degree extension lag now. He can flex to about 60. The swelling is moderately diminished as is the degree of erythema and symptomaticly he no longer feels pain in the finger so it feels much better for him. (2) Open wound of finger: Qualifiers: Encounter type: initial encounter Qualified Code(s): S61.209A - Unspecified open wound of unspecified finger without damage to nail, initial encounter Code(s): S61.209A - Unspecified open wound of unspecified finger without damage to nail, initial encounter Status: Acute Subjective Subjective Date/Time Seen: 06/10/24 13:16 Objective Data Vital Signs Vital Signs: Vital Signs - 24 hr 06/09/24 14:07 06/09/24 18:07 06/09/24 20:00 Temperature 36.5 C 36.6 C Pulse Rate 78 80 82 Respiratory Rate 18 19 16 Blood Pressure 170/66 H 168/64 H Pulse Oximetry 94 96 96 Oxygen Delivery Room Air 06/09/24 21:58 06/10/24 02:00 06/10/24 05:36 Temperature 37.0 C 36.7 C 37.0 C Pulse Rate 82 83 80 Respiratory Rate 16 16 16 Blood Pressure 175/91 H 164/77 H 162/67 H Pulse Oximetry 96 98 95 Oxygen Delivery 06/10/24 08:55 06/10/24 08:59 Temperature 36.9 C Pulse Rate 75 Respiratory Rate 16 Blood Pressure 172/88 H Pulse Oximetry 95 95 Oxygen Delivery Room Air Intake/Output Intake/Output: Intake & Output 06/07/24 06/08/24 06/09/2406/10/24 23:59 23:59 23:59 23:59 Intake Total 3266.7 2700 0560 530 Balance 3266.7 1780 8340 530 Meds/Results Medications: Active Medications Generic Name Dose Route Start Last Admin Trade Name Freq PRN Reason Stop Dose Admin Acetaminophen 650 mg 06/06/24 19:01 06/07/24 12:31 Acetaminophen 325 Mg Tablet PO 650 mg Q4H PRN Administration Mild Pain (1-3) or Fever Amlodipine Besylate 2.5 mg 06/08/24 09:00 06/10/24 09:00 Amlodipine Besylate 2.5 Mg Tablet PO 2.5 mg QAM INESSA Administration Benzocaine 1 lozenge 06/06/24 21:16 06/07/24 04:52 Benzocaine/Menthol (*Bkc) 18 Ea Lozenge PO 1 lozenge PRN PRN Administration Sore Throat Dextrose 12.5 gm 06/06/24 20:38 Dextrose 50% 25 Gm/50 Ml Syringe IV PUSH PRN PRN Hypoglycemia Protocol Enoxaparin Sodium 40 mg 06/09/24 09:00 06/10/24 09:02 Enoxaparin 40 Mg/0.4 Ml Syringe SUB-Q 40 mg DAILY INESSA Administration Glucagon 1 mg 06/06/24 20:38 Glucagon For Inj 1 Mg Vial IM PRN PRN Hypoglycemia Protocol Glucose 15 gm 06/06/24 20:38 Glucose Oral Gel 15 Gm Of Glucse In 37.5 Gm Tube PO PRN PRN Hypoglycemia Protocol Hydralazine HCl 10 mg 06/06/24 20:43 Hydralazine Hcl 20 Mg/Ml Vial IV PUSH Q6HR PRN Blood Pressure - High Dextrose 1,000 mls @ 100 mls/hr 06/06/24 20:38 Dextrose 5% 1,000 Ml IVPB PRN PRN Hypoglycemia Protocol Vancomycin HCl 1,750 mg in 500 mls @ 250 mls/hr 06/08/24 06:00 06/10/24 06:11 Vancomycin 1,750 Mg/Ns 500 Ml IVPB 250 mls/hr Q12H INESSA Administration Cefazolin Sodium 2 gm in 50 mls @ 100 mls/hr 06/09/24 13:00 06/10/24 13:09 Ancef 2 Gm/D5w 50 Ml IVPB 100 mls/hr Q8HR INESSA Administration Insulin Aspart 2 - 5 units 06/07/24 08:00 06/10/24 12:39 Insulin Aspart (*Bkc) 100 Units/Ml SUB-Q 2 units TIDWM [facility] Administration Protocol Insulin Aspart 6 units 06/07/24 08:00 06/10/24 12:38 Insulin Aspart (*Bkc) 100 Units/Ml 0.067 units/kg (6 units) 6 units SUB-Q Administration TIDWM [facility] Insulin Glargine 14 units 06/06/24 21:00 06/09/24 20:46 Insulin Glargine (*Bkc) 100 Units/Ml 0.15 units/kg (14 units) 14 units SUB-Q Administration [facility] Levofloxacin 750 mg 06/09/24 13:00 06/10/24 09:01 Levofloxacin 750 Mg Tablet PO 750 mg DAILY [facility] Administration Lisinopril 5 mg 06/07/24 09:00 06/10/24 09:02 Lisinopril 5 Mg Tablet PO 5 mg QAM [facility] Administration Morphine Sulfate 2 mg 06/06/24 20:42 06/08/24 17:31 Morphine Sulfate (*Crx) 2 Mg/Ml Inj IV PUSH 2 mg Q4H PRN Administration Pain Rated 7-10 Ondansetron HCl 4 mg 06/06/24 19:01 Ondansetron Inj 4 Mg/2 Ml Vial IV PUSH Q4H PRN Nausea Oxycodone/Acetaminophen 1 tablet 06/06/24 20:41 06/09/24 13:28 Oxycodone/Acetaminophen (*Crx) 5-325 Mg Tablet PO 1 tablet Q4H PRN Administration Pain Rated 7-10 Phenol 1 spray 06/06/24 21:21 Phenol/Sod Pheno [place] (*Bkc) MUCOUS MEM PRN PRN Sore Throat Polyethylene Glycol 17 gm 06/07/24 09:00 06/10/24 09:03 Polyethylene Glycol 3350 17 Gm Powd.Pack PO Not Given QAM [facility] Saccharomyces Boulardii 250 mg 06/07/24 17:00 06/10/24 09:02 Saccharomyces Boulardii 250 Mg Capsule PO 250 mg BID [facility] Administration Senna/Docusate Sodium 2 tab 06/08/24 17:00 06/10/24 09:01 Senna/Docusate Sodium Tablet PO 2 tab BID INESSA Administration Radiology Results: ITS Impressions Hand X-Ray 06/06/24 12:31 IMPRESSION: 1. 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 No acute osseous abnormality. Hand CT 06/06/24 18:11 IMPRESSION: No evidence of osteomyelitis or fracture. Possible cellulitis in the dorsal aspect of the fourth finger. Clinical correlation advised. Hand MRI 06/07/24 16:26 IMPRESSION: 1. Cellulitis surrounding a 12 x 10 x 3 mm subcutaneous abscess dorsal to the head of the fourth proximal phalanx. No osteomyelitis. Labs Labs: Laboratory Results - last 24 hr 06/09/24 06/09/24 06/09/24 16:56 16:59 20:40 WBC RBC Hgb Hct MCV MCH MCHC RDW Plt Count MPV Immature Gran % (Auto) Neut % (Auto) Lymph % (Auto) [place] % (Auto) Eos % (Auto) Baso % (Auto) Lymph # (Auto) [place] # (Auto) Eos # (Auto) Baso # (Auto) Abs Immat Gran (auto) Absolute Neuts (auto) Absolute Nucleated RBC Nucleated RBC % Sodium Potassium Chloride Carbon Dioxide Anion Gap BUN Creatinine Estim Creat Clear Calc Estimated GFR Glucose POC Capillary Glucose 152 H 167 H Calcium Magnesium Total Bilirubin AST ALT Alkaline Phosphatase Total Protein Albumin Vancomycin Trough 10.6 06/10/24 06/10/24 06/10/24 07:52 09:22 12:05 WBC 5.5 RBC 5.11 Hgb 14.7 Hct 43.3 MCV 84.7 MCH 28.8 MCHC 33.9 RDW 12.3 Plt Count 216 MPV 10.3 Immature Gran % (Auto) 1.5 H Neut % (Auto) 70.2 Lymph % (Auto) 18.2 L [place] % (Auto) 6.7 Eos % (Auto) 2.7 Baso % (Auto) 0.7 Lymph # (Auto) 1.00 [place] # (Auto) 0.4 Eos # (Auto) 0.2 Baso # (Auto) 0.0 Abs Immat Gran (auto) 0.08 H Absolute Neuts (auto) 3.9 Absolute Nucleated RBC 0.000 Nucleated RBC % 0.0 Sodium 136 L Potassium 4.1 Chloride 104 Carbon Dioxide 30 Anion Gap 2 L BUN 5 L Creatinine 0.70 Estim Creat Clear Calc 117 Estimated GFR > 60 Glucose 189 H POC Capillary Glucose 166 H 227 H Calcium 8.7 Magnesium 1.7 Total Bilirubin 0.6 AST 63 H ALT 90 H Alkaline Phosphatase 201 H Total Protein 7.0 Albumin 3.6 Vancomycin Trough
[2024-06-10 16:04] LABS: Glucose Point of Care 220 mg/dl (65-105)
[2024-06-10 17:08] LABS: Glucose Point of Care 200 mg/dl (65-105)
[2024-06-10] MEDS: DOXYCYCLINE HYCLATE 100 MG TABLET PO (18:03)
[2024-06-10] MEDS: INSULIN GLARGINE (*BKC) 100 UNITS/ML 14 UNITS SUB-Q (20:34)
[2024-06-10] MEDS: AMOXICILLIN/CLAVULANATE K 875-125 MG TAB 1 TABLET PO (20:34)
[2024-06-10] MEDS: hydrALAZINE HCL 20 MG/ML VIAL 10 MG IV PUSH (20:38)
[2024-06-10 21:29] LABS: Glucose Point of Care 214 mg/dl (65-105)
[2024-06-11 05:36] VITALS: BP 151/81; PULSE 78; RESP 14; TEMP 36.4; O2SAT 98
[2024-06-11 08:00] VITALS: O2SAT 98
[2024-06-11 08:12] LABS: Glucose Point of Care 202 mg/dl (65-105)
[2024-06-11] MEDS: INSULIN ASPART (*BKC) 100 UNITS/ML 6 UNITS SUB-Q (08:31)
[2024-06-11] MEDS: INSULIN ASPART (*BKC) 100 UNITS/ML SUB-Q (08:31)
[2024-06-11] MEDS: SENNA/DOCUSATE SODIUM TABLET 2 TAB PO (08:34)
[2024-06-11] MEDS: DOXYCYCLINE HYCLATE 100 MG TABLET PO (08:34)
[2024-06-11] MEDS: SACCHAROMYCES BOULARDII 250 MG CAPSULE PO (08:34)
[2024-06-11] MEDS: AMOXICILLIN/CLAVULANATE K 875-125 MG TAB 1 TABLET PO (08:34)
[2024-06-11] MEDS: amLODIPine BESYLATE 2.5 MG TABLET PO (08:34)
[2024-06-11] MEDS: ENOXAPARIN 40 MG/0.4 ML SYRINGE SUB-Q (08:34)
[2024-06-11] MEDS: lisinopriL 5 MG TABLET PO (08:35)
--- NOTE | 2024-06-11 09:07 | P.DS_ITS ---
DS: Admitting Diagnosis Discharge Date 06/11/2024 Admitting Diagnosis Cellulitis left hand DS: Discharge Diagnosis Discharge Diagnosis (1) Cellulitis of hand: Code(s): L03.119 - Cellulitis of unspecified part of limb Status: Acute Assessment and Plan: Patient is on IV antibiotics. Will continue current treatment monitor closely (2) Diabetes mellitus: Code(s): E11.9 - Type 2 diabetes mellitus without complications Status: Acute Assessment and Plan: Stable current medications, continue current treatment (3) Strep throat: Code(s): J02.0 - Streptococcal pharyngitis Status: Acute Assessment and Plan: Resolved. (4) Non compliance w medication regimen: Code(s): Z91.148 - Patient's other noncompliance with medication regimen for other reason Status: Acute Assessment and Plan: Counseling given. (5) Hyponatremia: Code(s): E87.1 - Hypo-osmolality and hyponatremia Status: Acute Assessment and Plan: Resolved. (6) Hypertension: Code(s): I10 - Essential (primary) hypertension Status: Acute Assessment and Plan: Stable current medications, continue current treatment Plan 49-year-old male with no known past medical history of diabetes mellitus, not on any medications who presented with left hand cellulitis after having a traumatic injury from a car door. 1. Left hand cellulitis with abscess s/p I and D CT had been negative for any abscess/fracture/osteomyelitis MRI hand showed Cellulitis with abscess, no osteomyelitis Continue vancomycin and Levofloxacin Appreciate help from Orthopecis surgery Awaiting tissue culture 2. Diabetes mellitus: A1c 12.3 SSI with accucheks lantus 14 units daily 3. Hypertension Continue Lisinopril and Amlodipine Add p.r.n. IV hydralazine 4. Hyponatremia, resolved s/p IVF Na 134 from 128 5. Group a strep pharyngitis: Already on antibiotics as mentioned above Supportive care with lozenges, phenol spray p.r.n. 6. DVT prophylaxis: Heparin subQ DS: Summary Hospital Course Reason for hospitalization: Cellulitis left hand Hospital Course: 59 years old male with history of diabetes and hypertension was admitted with complaint of having patient left hand. Patient was found to have cellulitis and abscess of the hand. I and D was done. Cultures were negative. Today patient is feeling better was discharged home stable condition, follow-up with orthopedic and primary care schedule. Status at Discharge Cognitive/behavioral status at discharge: Stable Time Spent with Patient Time attestation: 30 minutes Total time spent providing and/or coordinating discharge services: Exam Const: General: comfortable HENMT: Face/Nose/Sinus: Normal nares present Mouth: Yes moist mucous membranes Eyes: Sclera: sclerae normal Neck: Neck: supple Resp: Effort & Inspection: normal respiratory effort Auscultation: clear to auscultation bilaterally Cardio: Rate: regular rate Rhythm: regular rhythm GI: Auscultation: normal bowel sounds Skin: General skin exam: wounds noted Wounds: wounds noted Other: Noted skin break with surrounding mild erythema on upper back, noted redness and swelling of of middle finger along the interphalangeal joint and knuckle area Neuro: Speech: normal speech Motor exam (neuro): 5/5 motor strength present throughout Extrem: General: normal to inspection Psych: Mental Status: mental status grossly normal DS: Data Data Completed and Pending Labs on day of discharge: Labs from last 24 hours 06/11/24 06/10/24 06/10/24 07:59 20:26 16:50 WBC RBC Hgb Hct MCV MCH MCHC RDW Plt Count MPV Immature Gran % (Auto) Neut % (Auto) Lymph % (Auto) [place] % (Auto) Eos % (Auto) Baso % (Auto) Lymph # (Auto) [place] # (Auto) Eos # (Auto) Baso # (Auto) Abs Immat Gran (auto) Absolute Neuts (auto) Absolute Nucleated RBC Nucleated RBC % Sodium Potassium Chloride Carbon Dioxide Anion Gap BUN Creatinine Estim Creat Clear Calc Estimated GFR Glucose POC Capillary Glucose 202 H 214 H 200 H Calcium Magnesium Total Bilirubin AST ALT Alkaline Phosphatase Total Protein Albumin 06/10/24 06/10/24 06/10/24 15:55 12:05 09:22 WBC 5.5 RBC 5.11 Hgb 14.7 Hct 43.3 MCV 84.7 MCH 28.8 MCHC 33.9 RDW 12.3 Plt Count 216 MPV 10.3 Immature Gran % (Auto) 1.5 H Neut % (Auto) 70.2 Lymph % (Auto) 18.2 L [place] % (Auto) 6.7 Eos % (Auto) 2.7 Baso % (Auto) 0.7 Lymph # (Auto) 1.00 [place] # (Auto) 0.4 Eos # (Auto) 0.2 Baso # (Auto) 0.0 Abs Immat Gran (auto) 0.08 H Absolute Neuts (auto) 3.9 Absolute Nucleated RBC 0.000 Nucleated RBC % 0.0 Sodium 136 L Potassium 4.1 Chloride 104 Carbon Dioxide 30 Anion Gap 2 L BUN 5 L Creatinine 0.70 Estim Creat Clear Calc 117 Estimated GFR > 60 Glucose 189 H POC Capillary Glucose 220 H 227 H Calcium 8.7 Magnesium 1.7 Total Bilirubin 0.6 AST 63 H ALT 90 H Alkaline Phosphatase 201 H Total Protein 7.0 Albumin 3.6 Preliminary micro results at discharge 06/08/24 15:48 Anaerobic Culture - Preliminary Finger Left Ring Aerobic Culture - Preliminary 06/06/24 16:23 Blood Culture - Preliminary Blood 06/06/24 16:23 Blood Culture - Preliminary Blood Discharge Plan Discharge Attending physician on discharge: Hossein Mcdonald Consulting providers: Franki Sanches; Nedra Murdock Discharging Clinician: Hossein Mcdonald Activity: as tolerated Diet: diabetic Patient Language: German Follow-up/Referrals: Ana M Cavazos MD [Primary Care Provider] - Franki Sanches MD [Physician] - Discharge Medications: New insulin aspart U-100 [Novolog U-100 Insulin aspart] 100 unit/mL Solution 6 unit subcut TIDWM Qty: 30 0RF amlodipine 2.5 mg Tablet 2.5 mg PO QAM Qty: 30 0RF insulin glargine [Lantus U-100 Insulin] 100 unit/mL Solution 14 unit subcut HS Qty: 30 0RF lisinopril 5 mg Tablet 5 mg PO QAM Qty: 30 0RF doxycycline hyclate 100 mg Tablet 100 mg PO Q12HR Qty: 28 0RF amoxicillin-pot clavulanate [Augmentin] 500-125 mg tablet 1 tablet PO Q12H Qty: 14 0RF No Action No Home Medications Date of admission: 06/06/24 19:02 Primary Care Provider: Ana M Cavazos Admitting Provider: Marjorie Ponce Attending physician on admission: Marjorie Ponce Condition: Stable Quality VTE Prophylaxis VTE prophylaxis: pharmacologic ordered
--- NOTE | 2024-06-11 10:14 | P.PNOP_ITS ---
Progress Note: A&P Assessment and Plan (1) Open wound of finger: Qualifiers: Encounter type: initial encounter Qualified Code(s): S61.209A - Unspecified open wound of unspecified finger without damage to nail, initial encounter Code(s): S61.209A - Unspecified open wound of unspecified finger without damage to nail, initial encounter Status: Acute Assessment and Plan: Patient is postop day 3 after debridement of abscess left ring finger through dorsal skin defect remaining after removal of necrotic skin. He is being switched to Augmentin for oxacillin Staph aureus and strep coverage and doxycycline for broad-spectrum coverage. Cultures are no growth so far. He is being discharged home today. He is going to follow up with Dr. Ferguson in 1-2 weeks. He is going to continue with the 5 minute b.i.d. soaks with warm water and dilute hydrogen peroxide. He has been doing that since yesterday. Clinically his finger looks much better. The defect over the proximal dorsal shaft of the middle phalanx is now only about 5 mm in diameter and appears to be filled with pain granulation tissue that is moist. The swelling is finger is less than yesterday and the erythema appearance is further improved. He is quite comfortable. He moves the finger comfortably. I think the discharge is appropriate for him at this time. I explained that if he has worsening symptoms or appearance to the hand he will need to come back to the emergency room or call Dr. Ferguson saw office if during office hours. (2) Abscess of left ring finger: Code(s): L02.512 - Cutaneous abscess of left hand Status: Acute Subjective Subjective Date/Time Seen: 06/11/24 10:14 Objective Data Vital Signs Vital Signs: Vital Signs - 24 hr 06/10/24 14:11 06/10/24 20:00 06/10/24 20:30 Temperature 36.8 C 36.4 C Pulse Rate 76 79 77 Respiratory Rate 16 16 16 Blood Pressure 152/62 H 185/91 H Pulse Oximetry 95 95 98 Oxygen Delivery Room Air 06/10/24 22:35 06/11/24 05:36 06/11/24 08:00 Temperature 36.4 C Pulse Rate 79 78 Respiratory Rate 16 14 Blood Pressure 160/82 H 151/81 H Pulse Oximetry 95 98 98 Oxygen Delivery Room Air Intake/Output Intake/Output: Intake & Output 06/08/24 06/09/24 06/10/24 06/11/24 23:59 23:59 23:59 23:59 Intake Total 2700 2470 1270 640 Balance 2700 2470 1270 640 Meds/Results Medications: Active Medications Generic Name Dose Route Start Last Admin Trade Name Freq PRN Reason Stop Dose Admin Acetaminophen 650 mg 06/06/24 19:01 06/07/24 12:31 Acetaminophen 325 Mg Tablet PO 650 mg Q4H PRN Administration Mild Pain (1-3) or Fever Amlodipine Besylate 2.5 mg 06/08/24 09:00 06/11/24 08:34 Amlodipine Besylate 2.5 Mg Tablet PO 2.5 mg QAM INESSA Administration Amoxicillin/Clavulanate Potassium 1 tablet 06/10/24 21:00 06/11/24 08:34 Amoxicillin/Clavulanate K 875-125 Mg Tab PO 1 tablet Q12HR INESSA Administration Benzocaine 1 lozenge 06/06/24 21:16 06/07/24 04:52 Benzocaine/Menthol (*Bkc) 18 Ea Lozenge PO 1 lozenge PRN PRN Administration Sore Throat Dextrose 12.5 gm 06/06/24 20:38 Dextrose 50% 25 Gm/50 Ml Syringe IV PUSH PRN PRN Hypoglycemia Protocol Doxycycline Hyclate 100 mg 06/10/24 19:00 06/11/24 08:34 Doxycycline Hyclate 100 Mg Tablet PO 100 mg Q12HR INESSA Administration Enoxaparin Sodium 40 mg 06/09/24 09:00 06/11/24 08:34 Enoxaparin 40 Mg/0.4 Ml Syringe SUB-Q 40 mg DAILY INESSA Administration Glucagon 1 mg 06/06/24 20:38 Glucagon For Inj 1 Mg Vial IM PRN PRN Hypoglycemia Protocol Glucose 15 gm 06/06/24 20:38 Glucose Oral Gel 15 Gm Of Glucse In 37.5 Gm Tube PO PRN PRN Hypoglycemia Protocol Hydralazine HCl 10 mg 06/06/24 20:43 06/10/24 20:38 Hydralazine Hcl 20 Mg/Ml Vial IV PUSH 10 mg Q6HR PRN Administration Blood Pressure - High Dextrose 1,000 mls @ 100 mls/hr 06/06/24 20:38 Dextrose 5% 1,000 Ml IVPB PRN PRN Hypoglycemia Protocol Insulin Aspart 2 - 5 units 06/07/24 08:00 06/11/24 08:31 Insulin Aspart (*Bkc) 100 Units/Ml SUB-Q 2 units TIDWM [facility] Administration Protocol Insulin Aspart 6 units 06/07/24 08:00 06/11/24 08:31 Insulin Aspart (*Bkc) 100 Units/Ml 0.067 units/kg (6 units) 6 units SUB-Q Administration TIDWM [facility] Insulin Glargine 14 units 06/06/24 21:00 06/10/24 20:34 Insulin Glargine (*Bkc) 100 Units/Ml 0.15 units/kg (14 units) 14 units SUB-Q Administration [facility] Lisinopril 5 mg 06/07/24 09:00 06/11/24 08:35 Lisinopril 5 Mg Tablet PO 5 mg QAM [facility] Administration Morphine Sulfate 2 mg 06/06/24 20:42 06/08/24 17:31 Morphine Sulfate (*Crx) 2 Mg/Ml Inj IV PUSH 2 mg Q4H PRN Administration Pain Rated 7-10 Ondansetron HCl 4 mg 06/06/24 19:01 Ondansetron Inj 4 Mg/2 Ml Vial IV PUSH Q4H PRN Nausea Oxycodone/Acetaminophen 1 tablet 06/06/24 20:41 06/09/24 13:28 Oxycodone/Acetaminophen (*Crx) 5-325 Mg Tablet PO 1 tablet Q4H PRN Administration Pain Rated 7-10 Phenol 1 spray 06/06/24 21:21 Phenol/Sod Pheno [place] (*Bkc) MUCOUS MEM PRN PRN Sore Throat Polyethylene Glycol 17 gm 06/07/24 09:00 06/11/24 08:34 Polyethylene Glycol 3350 17 Gm Powd.Pack PO Not Given QAM [facility] Saccharomyces Boulardii 250 mg 06/07/24 17:00 06/11/24 08:34 Saccharomyces Boulardii 250 Mg Capsule PO 250 mg BID [facility] Administration Senna/Docusate Sodium 2 tab 06/08/24 17:00 06/11/24 08:34 Senna/Docusate Sodium Tablet PO 2 tab BID INESSA Administration Radiology Results: ITS Impressions Hand X-Ray 06/06/24 12:31 IMPRESSION: 1. 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 No acute osseous abnormality. Hand CT 06/06/24 18:11 IMPRESSION: No evidence of osteomyelitis or fracture. Possible cellulitis in the dorsal aspect of the fourth finger. Clinical correlation advised. Hand MRI 06/07/24 16:26 IMPRESSION: 1. Cellulitis surrounding a 12 x 10 x 3 mm subcutaneous abscess dorsal to the head of the fourth proximal phalanx. No osteomyelitis. Labs Labs: Laboratory Results - last 24 hr 06/10/24 06/10/24 06/10/24 12:05 15:55 16:50 POC Capillary Glucose 227 H 220 H 200 H 06/10/24 06/11/24 20:26 07:59 POC Capillary Glucose 214 H 202 H
[2024-06-11] MEDS: INFLUENZA TRIVALENT VACCINE 45 MCG/0.5 ML SYRINGE IM (10:31)
== END 2024-06-11 10:39 | disposition home or self-care (01) | DRG 603 ==
LOC: ANHED 19:00 → ANH2MED 06-09 11:59
PROVIDERS: Internal Medicine; Orthopaedic Surgery; Physician Assistant; Admitting Provider Internal Medicine; Emergency Provider Family Medicine; PCP Family Medicine; Visit Provider Internal Medicine
PROC: 0J9K3ZX Drainage of Left Hand Subcutaneous Tissue and Fascia, Percutaneous Approach, Diagnostic (ICD-10-PCS; principal; 2024-06-08 15:00)
DX: L03.012 Cellulitis of left finger (principal); E87.1 Hypo-osmolality and hyponatremia; L02.512 Cutaneous abscess of left hand; T81.41XA Infection following a procedure, superficial incisional surgical site, initial encounter; S61.205A Unspecified open wound of left ring finger without damage to nail, initial encounter; B95.61 Methicillin susceptible Staphylococcus aureus infection as the cause of diseases classified elsewhere; J02.0 Streptococcal pharyngitis; W23.1XXA Caught, crushed, jammed, or pinched between stationary objects, initial encounter; E11.65 Type 2 diabetes mellitus with hyperglycemia; F17.290 Nicotine dependence, other tobacco product, uncomplicated; I10 Essential (primary) hypertension; K59.00 Constipation, unspecified; Z23 Encounter for immunization; Z20.822 Contact with and (suspected) exposure to COVID-19; Z79.4 Long term (current) use of insulin; Z91.148 Patient's other noncompliance with medication regimen for other reason
CPT/HCPCS: 36415; 73130; 73201; 73220; 80048; 80053; 80202; 81001; 82948; 83036; 83605; 83735; 85025; 86140; 87040; 87070; 87075; 87181; 87205; 87637; 87651; 90471; 90656; 96360; 99285; A9270; A9577; G0008; J0330; J0360; J0690; J1644; J1650; J1815; J1956; J2270; J2405; J2704; J3010; J3370; J7030; J7120; Q9967